=== PATIENT | male | born 1955 | race Caucasian/White ===

== ENCOUNTER 2019-04-21 08:10 | Emergency (ER) | payer MEDICARE, OTHER, SELFPAY ==
--- NOTE | ~2019-04-21 | XR_ITS ---
XR chest 2V 04/21/2019 09:07 Indication: Chest pain. Procedure: 2 view chest Comparison: 07/17/2015 Findings: Heart size normal for technique. There is atherosclerosis. No focal air space disease, pulm onary edema, pleural effusion or suspected pneumothorax. No acute osseous abnormality. Impression: 1: No acute cardiopulmonary disease. Reviewed, dictated and finalized at location A. LE EBS DEVELOPER Impression: 1: No acute cardiopulmonary disease.
--- NOTE | 2019-04-21 08:18 | ECG_ITS ---
Measurements Intervals [place] Rate: 84 P: 54 WI: 165 QRS: -20 QRSD: 105 T: 25 QT: 358 QTc: 424 Interpretive Statements SINUS RHYTHM LOW QRS VOLTAGE IN PRECORDIAL LEADS INCOMPLETE RIGHT BUNDLE BRANCH BLOCK BASELINE ARTIFACT- I, II, III, AVR, AVL, AVF, V1, V3 BORDERLINE ECG Electronically Signed On 04-21-2019 8:45:10 ELECTRICAL EQUIPMENT TECHNICIAN by Nicola Saucedo D.O.
[2019-04-21 08:23] VITALS: BP 140/76; PULSE 84; RESP 16; TEMP 36.4; O2SAT 93
[2019-04-21 08:35] LABS: Basophils Absolute Auto 0.1 K/mm3 (0.0-0.1); Basophils Percent Auto 0.7 % (0.2-1.2); Eosinophils Absolute Auto 0.2 K/mm3 (0-0.3); Eosinophils Percent Auto 1.6 % (0-4.4); Hematocrit 40.1 % (42.0-52.0); Immature Granulocyte Absolute 0.03 K/mm3 (0.00-0.031); Immature Granulocyte Percent A 0.3 % (0-0.5); Lymphocytes Absolute Auto 2.75 K/mm3 (0.9-3.2); Lymphocytes Percent Auto 29.4 % (18.3-44.2); Mean Corpuscular HGB Conc 32.4 g/dl (32-36); Mean Corpuscular Hemoglobin 30.2 pg (26-34); Mean Corpuscular Volume 93.3 fl (80-100); Mean Platelet Volume 10.8 fl (7.4-10.4); Monocytes Absolute Auto 0.6 K/mm3 (0.1-0.6); Monocytes Percent Auto 6.2 % (2.6-8.5); Neutrophils Absolute Auto 5.8 K/mm3 (1.3-6.7); Neutrophils Percent Auto 61.8 % (45.5-73.1); Platelet Count Result 228 k/mm3 (150-375); Red Cell Distribution Width 13.6 % (11.5-14.5); White Blood Count 9.4 K/mm3 (4.5-10.0)
[2019-04-21 08:50] LABS: Blood Urea Nitrogen 21 mg/dL (9-20); Calcium 9.6 mg/dL (8.4-10.2); Carbon Dioxide 31 mmol/L (22-30); Chloride 99 mmol/L (98-107); Estimated CRCL calculation 100 ml/min; Estimated Glomerular Filt Rate > 60; Glucose 190 mg/dL (75-110); Potassium 4.3 mmol/L (3.4-5.0); Prothrombin Time 12.4 Seconds (11.1-14.7); Sodium 135 mmol/L (137-145)
[2019-04-21 08:51] LABS: Partial Thromboplastin Time 26.4 SECONDS (22.3-36.8)
[2019-04-21 09:01] LABS: Troponin I < 0.012 ng/mL (0.000-0.034)
--- NOTE | 2019-04-21 09:07 | ED.CHESTPAIN ---
HPI - Chest Pain General Chief Complaint: Chest Pain Stated Complaint: chest pain Time Seen by Provider: 04/21/19 08:58 Source: patient and RN notes reviewed Mode of arrival: ambulatory Limitations: no limitations History of Present Illness HPI narrative: Pt is a 63 y/o male who presents to the ED with c/o lt upper chest pain starting around 3 AM this morning. He notes that he has a Hx of Parkinson's disease, and states that he has had similar, yet less severe episodes of pain around his lt shoulder previously. Pt notes that his current pain is more intense, and currently rates his pain at 9/10. He describes his pain as throbbing, and notes that his pain intermittently radiates into his lt upper back and down his lt arm. Pt also reports numbness in his lt arm, SOB, and anxiety, but denies any vomiting. He notes that he took Aleve and Baclofen for his pain, but denies having any relief. Pt states that he has a significant FHx of CAD. MD complaint: chest pain Onset (ago): hour(s) (6) Timing of current episode: constant Prior episodes: Yes Onset: during rest Pain location: left chest (lt upper chest) Pain radiation: left arm and back (lt upper back) Pain scale (0-10): 9 Quality: other (throbbing) Relieving factors: nothing Associated symptoms: dyspnea and other (numbness in lt arm; anxiety) Treatment prior to arrival: other (Aleve; Baclofen) Related Data Allergies Allergy/AdvReac Type Severity Reaction Status Date / Time meperidine Allergy Severe Anaphylactic Verified 04/21/19 09:45 Shock Review of Systems Review of Systems: All systems reviewed & are unremarkable except as noted in HPI and below ENT: Denies headache(s) and Denies neck pain Cardiovascular: Cardiovascular: Reports chest pain (lt upper chest pain radiating into lt upper back and down lt arm) Respiratory: Respiratory: Reports dyspnea Gastrointestinal: Gastrointestinal: Denies abdominal pain, Denies diarrhea, Denies nausea and Denies vomiting Neurologic: Reports numbness (lt arm) Psychiatric: Psychiatric: Reports anxiety PMFSH Past Medical History Medical History Diabetes Hernia HTN (hypertension) Parkinsons disease Surgical History Surgical History Hx of cholecystectomy Hx of hernia repair Hx of right knee surgery Social History Social History Smoking status: Never smoker Exam Const: General: no acute distress and well developed Orientation/consciousness: oriented to person, oriented to place, oriented to time and patient oriented x3 HENMT: Head: normocephalic Neck: Neck: normal visual inspection and full ROM Chest: Chest palpation & inspection: normal inspection of the chest and no tenderness Resp: Effort & Inspection: normal respiratory effort Auscultation: clear to auscultation bilaterally Cardio: Rate: regular rate Rhythm: regular rhythm GI: GI Palp: No abdominal tenderness and Yes Soft to palpation Skin: General skin exam: normal color and turgor normal Neuro: General: oriented to person, oriented to place, oriented to time and patient oriented x3 Cognition (Neuro): normal cognition Extrem: General: normal to inspection, full ROM and no pedal edema Psych: Affect: Anxious affect present Course Vital Signs Vital signs: Vital Signs Temperature 36.4 C L 04/21/19 08:23 Pulse Rate 84 04/21/19 08:23 Respiratory Rate 16 04/21/19 08:23 Blood Pressure 140/76 04/21/19 08:23 Pulse Oximetry 93 04/21/19 08:23 Temperature 36.4 C L 04/21/19 08:23 Pulse Rate 73 04/21/19 13:10 Respiratory Rate 16 04/21/19 13:10 Blood Pressure 146/103 H 04/21/19 13:10 Pulse Oximetry 93 04/21/19 08:23 MDM - Chest Pain Lab Data Result diagrams: 04/21/19 08:25 04/21/19 08:25 Labs: Lab Results 04/21/19 04/21/19 04/21/19 Range/Units
[2019-04-21 09:47] LABS: D Dimer 0.46 ug/mL (<0.48)
[2019-04-21] MEDS: KETOROLAC 30 MG/ML VIAL (*BKC) IV PUSH (09:48)
[2019-04-21 11:37] LABS: Troponin I < 0.012 ng/mL (0.000-0.034)
[2019-04-21] MEDS: CYCLOBENZAPRINE HCL 10 MG TABLET PO (12:17)
[2019-04-21] MEDS: LORAZEPAM INJ 2 MG/ML VIAL 1 MG IV PUSH (12:55)
[2019-04-21 13:10] VITALS: BP 146/103; PULSE 73; RESP 16
== END 2019-04-21 13:10 | disposition home or self-care (01) ==
PROVIDERS: Emergency Provider Emergency Medicine
DX: R07.9 Chest pain, unspecified (principal); E11.9 Type 2 diabetes mellitus without complications; I10 Essential (primary) hypertension; G20 Parkinson's disease; I45.10 Unspecified right bundle-branch block
CPT/HCPCS: 36415; 71046; 80048; 84484; 85025; 85380; 85610; 85730; 93005; 96374; 96375; 99284; A9270; J1885; J2060

== ENCOUNTER 2022-08-12 11:02 | Observation (INO) | payer MEDICARE, OTHER, SELFPAY ==
[2022-08-12] VITALS (12 sets, daily range): BP systolic 108–162; BP diastolic 54–135; PULSE 78–90; RESP 16–25; TEMP 36.4–36.5; O2SAT 95–100
--- NOTE | ~2022-08-12 | CT_ITS ---
Noncontrast CT scan of the cervical spine Technique: Multiple contiguous axial [address] images of the cervical spine were obtained and rec onstructed in 2D sagittal and coronal planes on the acquisition scanner. Dose reduction technique was used on this scan by utilizing automated exposure control, adjustment of the mA and/or kV according to patient size. The dose-length product (DLP) was 497.31 mGy-cm. Clinical History: Pain Findings: There is no fracture or subluxation in the cervical spine. Vertebral bodies maintain normal height and alignment. No prevertebral soft tissue swelling. At C2-C3, there is right facet arthropathy. No definite disc bulge or herniation. No spinal canal daxa nosis, cord compression, or definite neural foraminal narrowing. At C3-C4, there is mild degenerative disc narrowing with right facet arthropathy. Bilateral neural fo ramina are preserved. No spinal canal stenosis evident. At C4-C5, there is right facet arthropathy. Probable mild bilateral neural foraminal narrowing, right worse than left. No significant disc bulge or herniation evident. No central canal stenosis or cord compression evident. At C5-C6, there is advanced degenerative disc narrowing, with disc osteophyte complex, especially at the left paracentral to left foraminal region, resulting in mild canal stenosis and probable mild fla ttening of the ventral cord. There is bilateral neural foraminal narrowing. At C6-C7, there is advanced degenerative disc narrowing. There is small disc osteophyte complex with probable minimal central canal stenosis. There is bilateral neural foraminal narrowing, left worse th an right. Impression: No fracture or subluxation of the cervical spine. Moderate degenerative spondylosis at C5-C6 and C6-C7. Mild degenerative changes in the remainder of the cervical spine, as detailed above. Reviewed, dictated and finalized at [facility]. Impression: No fracture or subluxation of the cervical spine. Moderate degenerative spondylosis at C5-C6 and C6-C7. Mild degenerative changes in the remainder of the cervical spine, as detailed josh osorio.
--- NOTE | ~2022-08-12 | NM_ITS ---
EXAMINATION: NM ivon stress w perfusion DATE: 08/13/2022 10:31 INDICATION: Chest pain TECHNIQUE: Rest images were obtained following intravenous administration of 12.8 mCi Tc99m tetrofosm in (Myoview). The patient was infused intravenously with Lexiscan (Regadenoson). Then, 33.3 mCi Tc99m tetrofosmin (Myoview) was administered intravenously, and stress images were obtained in both the celeste pine position and subsequently repeated in prone position. Data was reconstructed into short axis and horizontal and vertical long axis SPECT images. Gated SPECT images were also obtained. COMPARISON: None. FINDINGS: Small fixed perfusion defect at the apical septal segment consistent with infarct. There is additional perfusion defect along the mid inferior wall on the resting and on the delayed post stres s images but which appears within normal limits on the gated post stress imaging which remains equivo ector for additional infarct. No definitive reversible ischemia. There is normal left ventricular ayden missy size, wall motion and ejection fraction. Left ventricular ejection fraction measures 62%. IMPRESSION: 1. Small mild infarct at the apical septal segment and equivocal additional small mild infarct along the mid inferior segment. No reversible ischemia. 2. Left ventricular ejection fraction measuring 62%. Reviewed, dictated and finalized at location A. IMPRESSION: 1. Small mild infarct at the apical septal segment and equivocal additional sma ll mild infarct along the mid inferior segment. No reversible ischemia. 2. Left ventricular ejection fraction measuring 62%.
--- NOTE | ~2022-08-12 | CT_ITS ---
Noncontrast CT scan of the thoracic spine CLINICAL HISTORY: Back pain TECHNIQUE: Axial noncontrast imaging of the thoracic spine was performed. Sagittal and coronal reform atted images were constructed. Dose reduction technique was used on this scan by utilizing automated exposure control and iterative reconstruction technique. The dose-length product (DLP) was 1247.55 mG y-cm. FINDINGS: There is no fracture or subluxation of the thoracic spine. Vertebral bodies maintain normal height and alignment. There is severe degenerative disc narrowing at T1-T2 and at T5-T6. There is also advanced degenerativ e disc narrowing at T7-T8, T10-T11, and T11-T12. There is associated facet arthropathy at T10-T11 res ulting in probable mild central canal stenosis. There is additional mild facet arthropathy at T9-T10, probable mild central canal stenosis. No other definite areas of canal stenosis identified. Paravertebral soft tissues are unremarkable. Impression: No fracture or sublocation. Degenerative changes, as detailed above, probable mild central canal stenosis at T9-T10 and T10-11. A dditional areas of degenerative disc narrowing throughout the thoracic spine, as detailed above. Reviewed, dictated and finalized at location M. Impression: No fracture or sublocation. Degenerative changes, as detailed above, probable mild central canal stenosis a t T9-T10 and T10-11. Additional areas of degenerative disc narrowing throughout the thoracic spine, as detailed above.
--- NOTE | ~2022-08-12 | XR_ITS ---
Clinical Indication: Chest pain PA and lateral views of the chest: Comparison: 04/21/2019 Findings: The lungs are clear, without evidence of focal consolidation or pleural effusion. Cardiome diastinal silhouette is within normal limits. Bones and soft tissues are unremarkable. Impression: Normal chest. Reviewed, dictated and finalized at location . Impression: Normal chest.
--- NOTE | ~2022-08-12 | XR_ITS ---
EXAMINATION: [id number] DATE: 08/13/2022 15:20 INDICATION: Left knee swelling TECHNIQUE: Two views of the left knee were obtained. COMPARISON: None. FINDINGS: Alignment is normal. No fracture or osteochondral lesion. There is mild tricompartmental os teoarthritis characterized by tiny marginal osteophytes. There is a small knee joint effusion. There is prepatellar soft tissue swelling of the knee. IMPRESSION: 1. Small knee joint effusion and prepatellar soft tissue swelling of the knee without acute osseous a bnormality. Reviewed, dictated and finalized at location B. IMPRESSION: 1. Small knee joint effusion and prepatellar soft tissue swelling of the knee w ithout acute osseous abnormality.
--- NOTE | 2022-08-12 11:03 | ECG_ITS ---
Measurements Intervals [place] Rate: 92 P: 43 TX: 158 QRS: -23 QRSD: 98 T: 9 QT: 323 QTc: 401 Interpretive Statements SINUS RHYTHM BORDERLINE LEFT AXIS DEVIATION [QRS AXIS < -20] INCOMPLETE RIGHT BUNDLE BRANCH BLOCK [90+ ms QRS DURATION, TERMINAL R IN V1/V2, 40+ ms S IN I/aVL/V4/V5/V6] COMPARED TO ECG 04/21/2019 08:16:31 NO SIGNIFICANT CHANGES Electronically Signed On 08-12-2022 11:52:53 CDT by Sheila Austin M.D.
[2022-08-12 11:35] LABS: Basophils Absolute Auto 0.1 K/mm3 (0.0-0.1); Basophils Percent Auto 0.9 % (0.2-1.2); Eosinophils Absolute Auto 0.1 K/mm3 (0-0.3); Eosinophils Percent Auto 0.8 % (0-4.4); Hematocrit 36.2 % (42.0-52.0); Hemoglobin 11.7 g/dL (14.0-18.0); Immature Granulocyte Absolute 0.04 K/mm3 (0.00-0.031); Immature Granulocyte Percent A 0.4 % (0-0.5); Lymphocytes Absolute Auto 1.42 K/mm3 (0.9-3.2); Lymphocytes Percent Auto 15.4 % (18.3-44.2); Mean Corpuscular HGB Conc 32.3 g/dl (32-36); Mean Corpuscular Hemoglobin 30.2 pg (26-34); Mean Corpuscular Volume 93.5 fl (80-100); Mean Platelet Volume 10.8 fl (7.4-10.4); Monocytes Absolute Auto 0.6 K/mm3 (0.1-0.6); Monocytes Percent Auto 6.4 % (2.6-8.5); Neutrophils Percent Auto 76.1 % (45.5-73.1); Platelet Count Result 218 k/mm3 (150-375); Red Blood Count 3.87 M/mm3 (4.6-6.20); Red Cell Distribution Width 14.8 % (11.5-14.5); White Blood Count 9.2 K/mm3 (4.5-10.0)
[2022-08-12 11:45] LABS: INR 0.9
[2022-08-12 11:46] LABS: Partial Thromboplastin Time 26.5 SECONDS (22.3-36.8)
[2022-08-12] MEDS: ASPIRIN 81 MG CHEWABLE TABLET 324 MG PO (11:46)
[2022-08-12 11:47] LABS: Alanine Aminotransferase 11 U/L (6-50); Albumin Level 4.3 g/dL (3.5-5.1); Alkaline Phosphatase 86 U/L (38-126); Anion Gap 2 mmol/L (8-16); Aspartate Amino Transferase 32 U/L (17-59); Bilirubin,Total 0.7 mg/dL (0.2-1.3); Blood Urea Nitrogen 28 mg/dL (9-20); Calcium 9.5 mg/dL (8.4-10.2); Carbon Dioxide 32 mmol/L (22-30); Chloride 103 mmol/L (98-107); Estimated CRCL calculation 85 ml/min; Estimated Glomerular Filt Rate > 60; Glucose 135 mg/dL (65-110); Lipase 183 U/L (23-300); Potassium 4.7 mmol/L (3.4-5.0); Sodium 137 mmol/L (137-145)
--- NOTE | 2022-08-12 12:38 | ED.CHESTPAIN ---
HPI - Chest Pain General Chief Complaint: Chest Pain Stated Complaint: chest pain Time Seen by Provider: 08/12/22 12:01 History of Present Illness HPI narrative: Patient is a 66-year-old male with a history of Parkinson's, diabetes, hypertension presenting with chest pain. Patient states that he is very active and he is currently renovating 2 houses. States that over the last 6 months he has experienced worsening exertional chest pain. States that he feels fine until he gets up and does physical activity. States that he developed severe chest pressure that radiates into his left arm and neck. States that he often feels short of breath with these episodes. States that if he sits down and rests the pain goes away. States these episodes have been increasingly frequent which is what brought him in today. Currently, he denies any complaints. States his last stress test was probably more than 20 years ago. Denies fevers, cough, headache, numbness or weakness, abdominal pain, vomiting, diarrhea, leg swelling. Related Data Home Medications Medication Instructions Recorded Confirmed carbidopa 25 mg-levodopa 100 mg 4 tablet PO Q3H 08/12/22 08/12/22 tablet carbidopa ER 50 mg-levodopa 200 mg 2 tablet PO HS 08/12/22 08/12/22 tablet,extended release duloxetine 60 mg capsule,delayed 60 mg PO Q12H 08/12/22 08/12/22 release melatonin 10 mg tablet 10 mg PO HS 08/12/22 08/12/22 metformin 500 mg tablet,extended 1,000 mg PO Q12H 08/12/22 08/12/22 release 24 hr mirtazapine 30 mg tablet 30 mg PO HS 08/12/22 08/12/22 naproxen sodium 220 mg capsule 220 mg PO Q12H PRN Pain 08/12/22 08/12/22 (Aleve) polyethylene glycol 3350 17 17 g PO DAILY 08/12/22 08/12/22 gram/dose oral powder (Miralax) pregabalin 300 mg capsule 300 mg PO Q12H 08/12/22 08/12/22 sitagliptin phosphate 100 mg 100 mg PO DAILY 08/12/22 08/12/22 tablet (Januvia) trazodone 100 mg tablet 100 mg PO HS 08/12/22 08/12/22 Allergies Allergy/AdvReac Type Severity Reaction Status Date / Time meperidine Allergy Severe Anaphylactic Verified 04/21/19 09:45 Shock Review of Systems Review of Systems: All systems reviewed & are unremarkable except as noted in HPI and below PMFSH Past Medical History Medical History (Updated 08/12/22 @ 20:55 by Lisa Casas MD) Diabetes Hernia HTN (hypertension) Parkinsons disease Surgical History Surgical History (Updated 08/12/22 @ 20:18 by Tonia Trent NP) History of carpal tunnel release Hx of cholecystectomy Hx of hernia repair Hx of right knee surgery Family History Family History (Updated 08/12/22 @ 20:22 by Tonia Trent NP) Other Hypertension Social History Social History (Updated 08/12/22 @ 20:22 by Tonia Trent NP) Social History: The patient lives with his who is a nurse at [employer]. 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 He has 2 children and has never smoked cigarettes. The patient is currently disabled due to his Parkinson's. Code status full code Smoking status: Never smoker Lack of Transportation: No Lack of Food: Never True Current Housing: I Have Housing Concerned About Future Housing: No Difficulty Paying Gas/Electric Bills: No Difficulty Paying for Meds: No Currently Unemployed: No Education: Decline to Answer Difficulty w/ Childcare or Family Care: No Spiritual care concerns: No Exam Narrative: GENERAL: Well-appearing, well-nourished, and in no acute distress. Pleasant and cooperative HEAD: Normocephalic, atraumatic. EYES: PERRLA and EOMI. ENT: Nares clear, no rhinorrhea or epistaxis. Mucous membranes moist. NECK: Supple. CHEST: Clear to auscultation. No respiratory distress. HEART: Regular rate and rhythm. No murmur heard. Normal peripheral pulses. ABDOMEN: Soft, nontender, nondistended EXTREMITIES: Normal range of motion. No edema. SKIN: Warm, dry, no rash. NEURO: No focal deficits. Alert and oriented x3. + Parkinso
[2022-08-12 13:19] LABS: Troponin I < 0.012 ng/mL (0.000-0.034)
[2022-08-12 14:22] LABS: Troponin I < 0.012 ng/mL (0.000-0.034)
--- NOTE | 2022-08-12 15:03 | PM.IMHP ---
H&P: HPI History of Present Illness Date/Time: 08/12/22 15:03 Chief Complaint: Chest pain Narrative: This is a 66-year-old male patient has a history of Parkinson's, hypertension, and diabetes. The patient is typically very active and has been renovating 2 houses. Over the last 6 months he has had worsening exertional chest pain. The patient stated that he has mid sternal chest pain that radiates to his left neck and down his left arm. He endorses shortness of breath but the patient stated that it is sharp and when he rests the pain goes away. He stated the last time he had a cardiac workup was in 2019. He stated that was normal. When the patient was here in 2019 he was just in the emergency room and had similar symptoms. His troponins were negative at that time and they are also negative today. H&H 11.7 and 36.2. As previously mentioned his cardiac enzymes are negative.Chest x ray was read as normal chest . EKG was read as sinus rhythm borderline left axis deviation. The patient was given an aspirin. The patient is being admitted to observation status on the date of service of 08/12/2021 Review of Systems Review of Systems: All systems reviewed & are unremarkable except as noted in HPI and below Constitutional: Constitutional: Reports as per HPI and Reports no additional constitutional complaints Eyes: Eyes: Reports as per HPI and Reports no additional eye complaints ENT: Reports system reviewed and no additional complaints, except as documented and Reports Normal hearing present Cardiovascular: Cardiovascular: Reports no additional cardiovascular complaints Respiratory: Respiratory: Reports no additional respiratory complaints and Reports no additional respiratory complaints Gastrointestinal: Gastrointestinal: Reports as per HPI and Reports no additional gastrointestinal complaints Musculoskeletal: Musculoskeletal: Reports no additional musculoskeletal complaints Integumentary/Breasts: Skin/Breast: Reports system reviewed and no additional complaints, except as docu and Reports as per HPI Neurologic: Reports system reviewed and no additional complaints, except as documented, Reports as per HPI and Reports Normal hearing present Psychiatric: Psychiatric: Reports no additional psychiatric complaints and Reports as per HPI Endocrine: Endocrine: Reports no additional endocrine complaints Hematologic/Lymphatic: Hematologic/Lymphatic: Reports no additional hematologic/lymphatic complaints Allergic/Immunologic: Allergic/Immunologic: Reports no additional allergic/immunologic complaints [facility] Past Medical History Medical History (Updated 08/12/22 @ 20:18 by Tonia Trent NP) Diabetes Hernia HTN (hypertension) Parkinsons disease Surgical History Surgical History (Updated 08/12/22 @ 20:18 by Tonia Trent NP) History of carpal tunnel release Hx of cholecystectomy Hx of hernia repair Hx of right knee surgery Family History Family History (Updated 08/12/22 @ 20:22 by Tonia Trent NP) Other Hypertension Social History Social History (Updated 08/12/22 @ 20:22 by Tonia Trent NP) Social History: The patient lives with his who is a nurse at [employer] [employer]. 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 He has 2 children and has never smoked cigarettes. The patient is currently disabled due to his Parkinson's. Code status full code Smoking status: Never smoker Lack of Transportation: No Lack of Food: Never True Current Housing: I Have Housing Concerned About Future Housing: No Difficulty Paying Gas/Electric Bills: No Difficulty Paying for Meds: No Currently Unemployed: No Education: Decline to Answer Difficulty w/ Childcare or Family Care: No Spiritual care concerns: No Meds Home Medications and Allergies Home Medications Medication Instructions Recorded Confirmed Type carbidopa 25 mg-levodopa 100 mg 4 tablet PO Q3H 08/12/22 08/12/22 History tablet
[2022-08-12] MEDS: CARBIDOPA/LEVODOPA 25/100 MG TABLET 4 TABLET PO ×3 (16:02→23:58)
[2022-08-12 17:34] LABS: Troponin I 0.015 ng/mL (0.000-0.034)
[2022-08-12] MEDS: CARBIDOPA/LEVODOPA 25/100 MG CR TABLET 4 TABLET PO (21:47)
[2022-08-12] MEDS: MELATONIN 5 MG TABLET 10 MG PO (21:48)
[2022-08-12] MEDS: MIRTAZAPINE 30 MG TABLET PO (21:49)
[2022-08-12] MEDS: PREGABALIN (*CRX) 75 MG CAPSULE 300 MG PO (21:50)
[2022-08-12] MEDS: traZODone HCL 50 MG TABLET 100 MG PO (21:52)
[2022-08-12] MEDS: DULoxetine HCL 60 MG CAPSULE.DR PO (21:52)
[2022-08-13] VITALS (11 sets, daily range): BP systolic 95–149; BP diastolic 58–82; PULSE 67–94; RESP 18–24; TEMP 36.1–36.6; O2SAT 97–100
--- NOTE | 2022-08-13 | ECHO_ITS ---
Patient Info Name: Barrington Hdze Age: 66 years : 1955 Gender: Male Ht: 71 in Wt: 180 lbs BSA: 2.03 m2 HR: 69 bpm BP: 102 / 58 mmHg Technical Quality: Fair Exam Date: 08/13/2022 2:05 PM Exam Location: [facility] Pulmonary Exam Room: [facility] Patient Status: Outpatient Admit Date: 08/12/2022 Staff Ordering Physician: Tonia Trent NP Concrete Saw Operator: Katheryn Jane RDCS Attending Provider: Damian Treadwell MD Referring Physician: Twan CALLAWAY; Exam Type: CA echo doppler color flow Study Info Indications - chest pain Complete two-dimensional, color flow and Doppler transthoracic echocardiogram is performed. Summary 1. Complete two-dimensional, color flow and Doppler transthoracic echocardiogram is performed. 2. Left ventricular chamber dimension is normal. 3. Left ventricular systolic function is normal, estimated at 60-65%. 4. The left ventricular diastolic function is grade I diastolic dysfunction. 5. E/e' 10 is mildly elevated. 6. Global longitudinal strain is normal at -18.0%. 7. Left atrial chamber dimension is mildly enlarged. 8. There is mild aortic valve sclerosis. 9. There is trace tricuspid valve regurgitation. 10. No pulmonary hypertension, estimated pulmonary arterial systolic pressure is 26 mmHg. 11. There is trace pulmonic regurgitation. Left Ventricle E/e' 10 is mildly elevated. Global longitudinal strain is normal at -18.0%. Left ventricular chamber dimension is normal. Left ventricular systolic function is normal, estimated at 60-65%. The left ventricular diastolic function is grade I diastolic dysfunction. Right Ventricle Right ventricular chamber dimension is normal. Right ventricular systolic function is normal. Left Atria Left atrial chamber dimension is mildly enlarged. Right Atria Right atrial chamber dimension is normal. Aortic Valve The aortic valve is trileaflet. There is mild aortic valve sclerosis. There is no aortic valve stenosis. There is no aortic valve regurgitation. Pulmonic Valve There is trace pulmonic regurgitation. Mitral Valve There is no mitral valve stenosis. There is no mitral valve regurgitation. Tricuspid Valve There is trace tricuspid valve regurgitation. No pulmonary hypertension, estimated pulmonary arterial systolic pressure is 26 mmHg. Pericardium/Pleural There is no pericardial effusion. Inferior Vena Cava Normal inferior vena cava with >50% collapse upon inspiration consistent with normal right atrial pressure, 5 mmHg. Aorta The aortic root size at the sinus of Valsalva is normal. Left Ventricular Outflow Tract Name Value Normal LVOT 2D LVOT Diameter 2.1 cm LVOT Doppler LVOT Peak Gradient 5 mmHg LVOT Mean Gradient 3 mmHg LVOT VTI 20 cm LVOT VTI/AV VTI Ratio 0.8 LVOT Stroke Volume 70 ml LVOT CO 18.3 l/min LVOT CI 9.0 l/min/m2 Pulmonic Valve Name Value Normal
[2022-08-13] MEDS: CARBIDOPA/LEVODOPA 25/100 MG TABLET 4 TABLET PO ×7 (02:30→19:43)
[2022-08-13 05:00] LABS: Basophils Absolute Auto 0.1 K/mm3 (0.0-0.1); Basophils Percent Auto 0.8 % (0.2-1.2); Eosinophils Absolute Auto 0.2 K/mm3 (0-0.3); Eosinophils Percent Auto 2.8 % (0-4.4); Hematocrit 35.1 % (42.0-52.0); Hemoglobin 11.3 g/dL (14.0-18.0); Immature Granulocyte Absolute 0.02 K/mm3 (0.00-0.031); Immature Granulocyte Percent A 0.3 % (0-0.5); Lymphocytes Absolute Auto 2.58 K/mm3 (0.9-3.2); Lymphocytes Percent Auto 32.5 % (18.3-44.2); Mean Corpuscular HGB Conc 32.2 g/dl (32-36); Mean Corpuscular Hemoglobin 30.5 pg (26-34); Mean Corpuscular Volume 94.6 fl (80-100); Mean Platelet Volume 10.7 fl (7.4-10.4); Monocytes Absolute Auto 0.6 K/mm3 (0.1-0.6); Monocytes Percent Auto 7.9 % (2.6-8.5); Neutrophils Absolute Auto 4.4 K/mm3 (1.3-6.7); Neutrophils Percent Auto 55.7 % (45.5-73.1); Platelet Count Result 213 k/mm3 (150-375); Red Blood Count 3.71 M/mm3 (4.6-6.20); Red Cell Distribution Width 15.1 % (11.5-14.5); White Blood Count 7.9 K/mm3 (4.5-10.0)
[2022-08-13 05:08] LABS: Alanine Aminotransferase 8 U/L (6-50); Albumin Level 3.5 g/dL (3.5-5.1); Alkaline Phosphatase 80 U/L (38-126); Anion Gap 1 mmol/L (8-16); Aspartate Amino Transferase 24 U/L (17-59); Bilirubin,Total 0.7 mg/dL (0.2-1.3); Blood Urea Nitrogen 23 mg/dL (9-20); Calcium 8.7 mg/dL (8.4-10.2); Carbon Dioxide 34 mmol/L (22-30); Chloride 103 mmol/L (98-107); Estimated CRCL calculation 85 ml/min; Estimated Glomerular Filt Rate > 60; Glucose 126 mg/dL (65-110); Magnesium 2.1 mg/dL (1.6-2.3); Sodium 138 mmol/L (137-145)
[2022-08-13 05:09] LABS: Lactic Acid Reflex 1.2 mmol/L (0.7-2.0)
[2022-08-13 05:31] LABS: Hemoglobin A1C 6.7 % (<5.7)
[2022-08-13 05:38] LABS: Thyroid Stimulating Hormone Reflex 0.468 uIU/mL (0.465-4.68)
[2022-08-13 09:16] LABS: Troponin I 0.015 ng/mL (0.000-0.034)
[2022-08-13 10:09] LABS: Glucose Point of Care 237 mg/dl (65-105)
[2022-08-13] MEDS: PREGABALIN (*CRX) 75 MG CAPSULE 300 MG PO (10:18)
[2022-08-13] MEDS: ASPIRIN 325 MG ENTERIC TABLET PO (10:18)
[2022-08-13] MEDS: INSULIN ASPART (*BKC) 100 UNITS/ML SUB-Q (10:19)
[2022-08-13] MEDS: DULoxetine HCL 60 MG CAPSULE.DR PO (10:19)
[2022-08-13] MEDS: polyethylene glycoL 3350 17 GM POWD.PACK PO (10:19)
[2022-08-13 11:32] LABS: Glucose Point of Care 149 mg/dl (65-105)
--- NOTE | 2022-08-13 15:07 | PM.CNOR ---
Assessment and Plan Assessment and plan (1) Right shoulder pain: Qualifiers: Chronicity: acute Qualified Code(s): M25.511 - Pain in right shoulder Code(s): M25.511 - Pain in right shoulder Status: Acute Assessment and Plan: Right shoulder pain and weakness. Painful arc of motion suggest rotator cuff pathology. Differential includes rotator cuff tendinitis or tear. No signs of acute infection or dislocation. Depending on the results of the MRI he could start physical therapy as an outpatient. He may follow-up with me as an outpatient. (2) Prepatellar bursitis, left knee: Code(s): M70.42 - Prepatellar bursitis, left knee Status: Acute Assessment and Plan: No signs of infection. Likely related to several falls. Scarring and fluid in the bursa should resolve over time. If symptoms persist, surgical excision could be considered. Aspiration runs a significant risk of causing an infection. Symptoms and signs of infection reviewed with the patient. Okay to discharge patient when ready. Follow-up as needed. History of Present Illness HPI Consult date: 08/13/22 Chief complaint: chest pain Narrative: 66-year-old male admitted with chest pain. Workup thus far negative. Complains of swelling in the left knee anteriorly. States that he has fallen on this knee several times. He does have a history of Parkinson's disease. His contralateral knee causes him more regular pain. No fevers chills or sweats. Also complains of right shoulder pain in the top posterior aspect of the shoulder. Worse with reaching and overhead activities. Review of Systems Constitutional: Constitutional: Reports as per [facility] Past Medical History Medical History Diabetes Hernia HTN (hypertension) Parkinsons disease Surgical History Surgical History History of carpal tunnel release Hx of cholecystectomy Hx of hernia repair Hx of right knee surgery Family History Family History Other Hypertension Social History Social History Social History: The patient lives with his who is a nurse at [employer]. 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 He has 2 children and has never smoked cigarettes. The patient is currently disabled due to his Parkinson's. Code status full code Smoking status: Never smoker Lack of Transportation: No Lack of Food: Never True Current Housing: I Have Housing Concerned About Future Housing: No Difficulty Paying Gas/Electric Bills: No Difficulty Paying for Meds: No Currently Unemployed: No Education: Decline to Answer Difficulty w/ Childcare or Family Care: No Spiritual care concerns: No Meds Home Medications and Allergies Home Medications Medication Instructions Recorded Confirmed Type carbidopa 25 mg-levodopa 100 mg 4 tablet PO Q3H 08/12/22 08/12/22 History tablet carbidopa ER 50 mg-levodopa 200 mg 2 tablet PO HS 08/12/22 08/12/22 History tablet,extended release duloxetine 60 mg capsule,delayed 60 mg PO Q12H 08/12/22 08/12/22 History release melatonin 10 mg tablet 10 mg PO HS 08/12/22 08/12/22 History metformin 500 mg tablet,extended 1,000 mg PO Q12H 08/12/22 08/12/22 History release 24 hr mirtazapine 30 mg tablet 30 mg PO HS 08/12/22 08/12/22 History naproxen sodium 220 mg capsule 220 mg PO Q12H PRN Pain 08/12/22 08/12/22 History (Aleve) polyethylene glycol 3350 17 17 g PO DAILY 08/12/22 08/12/22 History gram/dose oral powder (Miralax) pregabalin 300 mg capsule 300 mg PO Q12H 08/12/22 08/12/22 History sitagliptin phosphate 100 mg 100 mg PO DAILY 08/12/22 08/12/22 History tablet (Januvia) trazodone 100 mg tablet 100 mg PO HS 08/12/22 08/12/22 History Allergies Allergy/AdvRea
[2022-08-13] MEDS: TETANUS/DIPHTHERIA TOXOIDS ADSORB 0.5 ML VIAL (*BKC) IM (15:30)
[2022-08-13 16:14] LABS: Glucose Point of Care 132 mg/dl (65-105)
[2022-08-13 16:18] LABS: Troponin I < 0.012 ng/mL (0.000-0.034)
--- NOTE | 2022-08-13 16:56 | PM.DS ---
DS: Admitting Diagnosis Discharge Date August 13 Admitting Diagnosis Chest pain DS: Discharge Diagnosis Discharge Diagnosis (1) Chest pain: Qualifiers: Chest pain type: unspecified Qualified Code(s): R07.9 - Chest pain, unspecified Code(s): R07.9 - Chest pain, unspecified Status: Inactive Assessment and Plan: Cardiac enzymes are negative x3. The patient had a similar episode in 2019. The patient also has some tenderness to his cervical spine as well as thoracic spine. The patient states he has a history of scoliosis although it is not that severe. CT of the cervical and thoracic spine have also been ordered. Echo has been ordered. Nuclear med stress test have been ordered as well. Check lipid panel continue with daily aspirin. -lexiscan negative for ischemic ST changes small mild infarct at the apical septal segment and equivocal additional small mild infarct along the mid inferior segment. No reversible ischemia noted. LV is estimated at 62%. I spoke with cardiology and there is nothing they need to intervene on. Patient will be discharged home with ASA and a statin. Recommend PCP follow up and may benefit from repeat stress test in 6 months to a year. -Troponin negative (2) Anxiety: Code(s): F41.9 - Anxiety disorder, unspecified Status: Inactive Assessment and Plan: Continue with trazodone, mirtazapine, and duloxetine. (3) Diabetes: Qualifiers: Diabetes mellitus type: type 2 Diabetes mellitus [employer] insulin use: without [facility] use Diabetes mellitus complication status: without complication Qualified Code(s): E11.9 - Type 2 diabetes mellitus without complications Code(s): E11.9 - Type 2 diabetes mellitus without complications Status: Acute Assessment and Plan: Holding metformin in the event that the patient may need a cardiac catheterization. I explained this to the patient he understands. Continue Januvia. Accu-Cheks AC and HS with sliding scale insulin. Check A1c P -HgbA1c 6.7. Restarting home mediations at discharge. (4) Parkinsons disease: Code(s): G20 - Parkinson's disease Status: Acute Assessment and Plan: Continue with patient's carbidopa levodopa (5) HTN (hypertension): Qualifiers: Hypertension type: primary hypertension Qualified Code(s): I10 - Essential (primary) hypertension Code(s): I10 - Essential (primary) hypertension Status: Acute Assessment and Plan: The patient stated that he used to have high blood pressure but his Parkinson's medication made his blood pressure dropped so he is no longer unable blood pressure medications. DS: Summary Hospital Course Reason for hospitalization: chest pain Hospital Course: This is a 66-year-old male patient has a history of Parkinson's, hypertension, and diabetes.? The patient is typically very active and has been renovating 2 houses.? Over the last 6 months he has had worsening exertional chest pain.? The patient stated that he has mid sternal chest pain that radiates to his left neck and down his left arm.? He endorses shortness of breath but the patient stated that it is sharp and when he rests the pain goes away.? He stated the last time he had a cardiac workup was in 2019.? He stated that was normal.? When the patient was here in 2019 he was just in the emergency room and had similar symptoms.? His troponins were negative at that time and they are also negative today.? H&H 11.7 and 36.2.? As previously mentioned his cardiac enzymes are negative.Chest x ray was read as normal chest .? EKG was read as sinus rhythm borderline left axis deviation.? The patient was given an aspirin.? The patient is being admitted to observation status on the date of service of 08/12/202108/13: Chest pain is mostly resolved. Less likely cardiac and more likely contributed to anxiety and musculoskeletal pain from frequent falls. Stress test was n
--- NOTE | 2022-08-13 20:24 | EST_ITS ---
Patient Info Name: Barrington Hdez Age: 66 years : 1955 Gender: Male Ht: 71 in Wt: 180 lbs BSA: 2.03 m2 HR: 78 bpm BP: 133 / 65 mmHg Heart Rhythm: Sinus Rhythm Exam Date: 08/13/2022 8:46 AM Exam Location: [facility] Stress Patient Status: Inpatient Admit Date: 08/12/2022 Staff Ordering Physician: Tonia Trent NP Attending Provider: Damian Treadwell MD Exercise Technologist: Maria Isabel Portillo CT Exercise Physician: Nicola Saucedo DO Exam Type: CA stress ivon w NM Study Info Indications R06.09 - Other forms of dyspnea A regadenoson stress test was performed. Summary 1. 1. Negative lexiscan stress test for ischemic ST changes by ECG criteria. 2. 2. Stable hemodynamics throughout the test. 3. 3. Nuclear scan to follow and will be reported separately. Please correlate with it. 4. 4. Patient informed of the above results. Protocol: Lexiscan Stress ECG Details Stage: REST Duration (min): 1 min : 32 sec HR (bpm): 78 SBP (mmHg): 133 DBP (mmHg): 65 Stage: REST Duration (min): 10 min : 31 sec HR (bpm): 78 SBP (mmHg): 133 DBP (mmHg): 65 Stage: STAGE 1 Duration (min): 0 min : 59 sec HR (bpm): 87 SBP (mmHg): 149 DBP (mmHg): 81 Stage: RECOVERY Duration (min): 1 min : 0 sec HR (bpm): 90 SBP (mmHg): 149 DBP (mmHg): 81 Stage: RECOVERY Duration (min): 2 min : 0 sec HR (bpm): 97 SBP (mmHg): 149 DBP (mmHg): 81 Stage: RECOVERY Duration (min): 3 min : 0 sec HR (bpm): 89 SBP (mmHg): 118 DBP (mmHg): 74 Stage: RECOVERY Duration (min): 3 min : 5 sec HR (bpm): 88 SBP (mmHg): 118 DBP (mmHg): 74 Rest HR: 78 bpm Peak HR: 97 bpm Rest Sys BP: 133 mmHg Peak Sys BP: 149 mmHg Max Pred HR: 155 bpm % Max Pred HR: 63 % Target HR: 132 bpm Max RPP: 14,453 bpm*mmHg Termination Reason: Completed protocol Cardiac Symptoms: None Total Time: 1 min : 0 sec Rest Salguero BP: 65 mmHg Peak Salguero BP: 81 mmHg Total Dose: 0.4 mg Resting ECG Sinus rhythm. Stress ECG No ST changes. Arrhythmias None. Report Signatures
[2022-08-13 20:52] LABS: Glucose Point of Care 126 mg/dl (65-105)
== END 2022-08-13 19:57 | disposition home or self-care (01) ==
LOC: ANHED 12:17 → ANHIMU 14:26
PROVIDERS: Emergency Medicine; Nurse Practitioner; Nurse Practitioner Acute Care; Admitting Provider Internal Medicine; Emergency Provider Emergency Medicine; PCP Internal Medicine Endocrinology, Diabetes & Metabolism; Visit Provider Student in an Organized Health Care Education/Training Program
DX: R07.9 Chest pain, unspecified (principal); F41.9 Anxiety disorder, unspecified; E11.9 Type 2 diabetes mellitus without complications; G20 Parkinson's disease; I11.9 Hypertensive heart disease without heart failure; Z23 Encounter for immunization; M25.511 Pain in right shoulder; M70.42 Prepatellar bursitis, left knee; M47.812 Spondylosis without myelopathy or radiculopathy, cervical region; M25.462 Effusion, left knee; M51.34 Other intervertebral disc degeneration, thoracic region; R06.09 Other forms of dyspnea; I45.10 Unspecified right bundle-branch block; I35.8 Other nonrheumatic aortic valve disorders; Z79.84 Long term (current) use of oral hypoglycemic drugs; Z79.1 Long term (current) use of non-steroidal anti-inflammatories (NSAID); Z79.899 Other long term (current) drug therapy; Z82.49 Family history of ischemic heart disease and other diseases of the circulatory system
CPT/HCPCS: 36415; 71046; 72125; 72128; 73560; 78452; 80053; 82948; 83036; 83605; 83690; 83735; 84443; 84484; 85025; 85610; 85730; 90471; 90714; 93005; 93017; 93306; 99285; A9270; A9502; G0378; J1815; J2785

== ENCOUNTER 2022-11-04 13:39 | Inpatient (IN) | payer MEDICARE, OTHER, SELFPAY ==
--- NOTE | ~2022-11-04 | XR_ITS ---
XR chest 1V portable 11/07/2022 06:40 Indication: Shortness of breath Procedure: AP portable chest Comparison: Comparison to multiple prior studies sequentially, with oldest reviewed study dated 08/2019. Findings: Cardiomegaly. Persistent diffuse bilateral airspace disease unchanged from 11/06/2022. No si gnificant effusion or pneumothorax. No acute osseous abnormality. Impression: 1: Stable diffuse bilateral airspace disease, most likely edema. Pneumonia less favored. Reviewed, dictated and finalized at location A. Impression: 1: Stable diffuse bilateral airspace disease, most likely edema. Pneumonia less favored.
--- NOTE | ~2022-11-04 | XR_ITS ---
XR chest 1V portable 11/05/2022 08:42 Indication: Chest pain Procedure: AP portable chest Comparison: Comparison to multiple prior studies sequentially, with oldest reviewed study dated 03/2015. Findings: Borderline heart size. Mild interstitial edema. No pleural effusion or pneumothorax. No acu te osseous abnormality. Impression: 1: Borderline heart size with mild interstitial edema. Reviewed, dictated and finalized at location A. Impression: 1: Borderline heart size with mild interstitial edema.
--- NOTE | ~2022-11-04 | XR_ITS ---
EXAMINATION: XR knee LT min 4V DATE: 11/04/2022 16:35 INDICATION: Knee pain TECHNIQUE: Four views of the left knee were obtained. COMPARISON: None. FINDINGS: Alignment is normal. No fracture or osteochondral lesion. There is mild tricompartmental os teoarthritis characterized by tiny marginal osteophytes. No joint effusion/synovitis. There is marke d prepatellar soft tissue swelling. Calcified atherosclerosis is noted. IMPRESSION: 1. Marked prepatellar soft tissue swelling. Reviewed, dictated and finalized at location L.
--- NOTE | ~2022-11-04 | XR_ITS ---
EXAMINATION: XR chest 1V portable Exam Date/Time: 11/06/2022 14:20 CDT HISTORY: SOB DYSPNEA Comparison: 11/05/2022. RESULT: Lines, tubes, and devices: None. Lungs and pleura: Patchy, bilateral, somewhat centralized airspace disease, overlying diffuse reticu lar opacities. Bibasilar scar/atelectasis. Cardiomediastinal silhouette: Stable. Other: No acute osseous or upper abdominal finding. IMPRESSION: Pulmonary opacities presumably related to moderate pulmonary edema given the rapidity of onset. Pneum onia should remain in the differential. Reviewed, dictated and finalized at location K. IMPRESSION: Pulmonary opacities presumably related to moderate pulmonary edema given the ra pidity of onset. Pneumonia should remain in the differential.
--- NOTE | ~2022-11-04 | CT_ITS ---
EXAMINATION: CTA chest PE protocol DATE: 11/06/2022 14:53 INDICATION: SOB TECHNIQUE: Computed tomography angiography (CTA) of the chest was performed with 100 mL Omnipaque-350 intravenous contrast timed to evaluate the pulmonary arteries. Coronal maximum intensity projection 3D-reconstructions were created by the technologist. The dose-length product (DLP) was 531.68 mGy-cm. Automated exposure control and iterative reconstruction technique were employed. COMPARISON: X-ray chest, same date. FINDINGS: Lung parenchyma and airways: Patchy, diffuse bilateral consolidative and groundglass opacities with i nterlobular septal thickening. Pleura: Small bilateral pleural fluid collections. Thoracic inlet, axillae and chest wall: Unremarkable. Thoracic aorta: Mild arch calcification. Mediastinum: Normal. Heart and pericardium: Normal. Coronary artery calcifications: Moderate. Upper abdomen: No significant finding. Bones: No acute osseous finding. Pulmonary arteries: Study quality: Adequate. No pulmonary emboli detected. IMPRESSION: No CT evidence of acute pulmonary embolus. Pulmonary opacities most consistent with moderate pulmonary edema. Small bilateral pleural effusions. Infection is not excluded. Reviewed, dictated and finalized at location K. IMPRESSION: No CT evidence of acute pulmonary embolus. Pulmonary opacities most consistent with moderate pulmonary edema. Small bilate ral pleural effusions. Infection is not excluded.
[2022-11-04 13:46] VITALS: BP 130/78; PULSE 60; RESP 18; TEMP 37.3; O2SAT 95
[2022-11-04 16:33] LABS: Basophils Absolute Auto 0.1 K/mm3 (0.0-0.1); Basophils Percent Auto 0.4 % (0.2-1.2); Eosinophils Absolute Auto 0.1 K/mm3 (0-0.3); Eosinophils Percent Auto 0.6 % (0-4.4); Hematocrit 36.2 % (42.0-52.0); Hemoglobin 11.4 g/dL (14.0-18.0); Immature Granulocyte Absolute 0.09 K/mm3 (0.00-0.031); Immature Granulocyte Percent A 0.6 % (0-0.5); Lymphocytes Absolute Auto 1.78 K/mm3 (0.9-3.2); Lymphocytes Percent Auto 12.5 % (18.3-44.2); Mean Corpuscular HGB Conc 31.5 g/dl (32-36); Mean Corpuscular Hemoglobin 30.1 pg (26-34); Mean Corpuscular Volume 95.5 fl (80-100); Mean Platelet Volume 10.7 fl (7.4-10.4); Monocytes Absolute Auto 1.3 K/mm3 (0.1-0.6); Monocytes Percent Auto 9.3 % (2.6-8.5); Neutrophils Absolute Auto 10.9 K/mm3 (1.3-6.7); Neutrophils Percent Auto 76.6 % (45.5-73.1); Platelet Count Result 192 k/mm3 (150-375); Red Blood Count 3.79 M/mm3 (4.6-6.20); Red Cell Distribution Width 14.2 % (11.5-14.5); White Blood Count 14.3 K/mm3 (4.5-10.0)
[2022-11-04] MEDS: HYDROcodone/acetaminophen (*CRX) 5-325 MG TABLET 1 TAB PO ×2 (16:41→22:43)
[2022-11-04 16:43] LABS: Anion Gap 5 mmol/L (8-16); Blood Urea Nitrogen 25 mg/dL (9-20); Calcium 9.2 mg/dL (8.4-10.2); Carbon Dioxide 32 mmol/L (22-30); Chloride 100 mmol/L (98-107); Estimated CRCL calculation 84 ml/min; Estimated Glomerular Filt Rate > 60; Glucose 160 mg/dL (65-110); Potassium 4.8 mmol/L (3.4-5.0); Sodium 137 mmol/L (137-145)
--- NOTE | 2022-11-04 17:08 | ED.EXTPRO ---
HPI - Extremity Problem General Chief complaint: Extremity Problem,Nontraumatic Stated complaint: left knee swollen Time Seen by Provider: 11/04/22 16:02 History of Present Illness HPI Narrative: Patient is a 67-year-old male who presents ER with left knee pain and swelling. Worsening over the last 2 days. He has history of prepatellar bursitis and this feels similar. He is reports low-grade temp of 99.9. He reports he has had frequent falls due to his Parkinson's. He does believe he struck his knee but cannot give a detailed story. He continues to be able to have flexion extension but has significant pain when he tries to bear weight. The area of the bursa has become red and hot. Related Data Home Medications Medication Instructions Recorded Confirmed carbidopa 25 mg-levodopa 100 mg 4 tablet PO Q3H 08/12/22 08/12/22 tablet carbidopa ER 50 mg-levodopa 200 mg 2 tablet PO HS 08/12/22 08/12/22 tablet,extended release duloxetine 60 mg capsule,delayed 60 mg PO Q12H 08/12/22 08/12/22 release melatonin 10 mg tablet 10 mg PO HS 08/12/22 08/12/22 metformin 500 mg tablet,extended 1,000 mg PO Q12H 08/12/22 08/12/22 release 24 hr mirtazapine 30 mg tablet 30 mg PO HS 08/12/22 08/12/22 naproxen sodium 220 mg capsule 220 mg PO Q12H PRN Pain 08/12/22 08/12/22 (Aleve) polyethylene glycol 3350 17 17 g PO DAILY 08/12/22 08/12/22 gram/dose oral powder (Miralax) pregabalin 300 mg capsule 300 mg PO Q12H 08/12/22 08/12/22 sitagliptin phosphate 100 mg 100 mg PO DAILY 08/12/22 08/12/22 tablet (Januvia) trazodone 100 mg tablet 100 mg PO HS 08/12/22 08/12/22 Allergies Allergy/AdvReac Type Severity Reaction Status Date / Time meperidine Allergy Severe Anaphylactic Verified 04/21/19 09:45 Shock Review of Systems Constitutional: Constitutional: Denies chills and Denies fatigue Comments: Low-grade temp ENT: Denies nasal congestion and Denies sore throat Cardiovascular: Cardiovascular: Denies chest pain, Denies rapid heart rate and Denies radiating jaw, neck or arm pain Musculoskeletal: Musculoskeletal: Denies myalgias, Reports arthralgias and Reports joint swelling Integumentary/Breasts: Skin/Breast: Denies pruritus, Reports erythema, Reports rash and Denies skin ulcer Neurologic: Denies syncope, Denies focal weakness and Denies numbness PMFSH Past Medical History Medical History Diabetes Hernia HTN (hypertension) Parkinsons disease Surgical History Surgical History History of carpal tunnel release Hx of cholecystectomy Hx of hernia repair Hx of right knee surgery Family History Family History Other Hypertension Social History Social History Social History: The patient lives with his who is a nurse at [employer]. 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 He has 2 children and has never smoked cigarettes. The patient is currently disabled due to his Parkinson's. Code status full code Smoking status: Never smoker Lack of Transportation: No Lack of Food: Never True Current Housing: I Have Housing Concerned About Future Housing: No Difficulty Paying Gas/Electric Bills: No Difficulty Paying for Meds: No Currently Unemployed: No Education: Decline to Answer Difficulty w/ Childcare or Family Care: No Spiritual care concerns: No Exam Narrative: GENERAL: Well-appearing, well-nourished, and in no acute distress. HEAD: Normocephalic, atraumatic. ENT: Mucous membranes moist. NECK: Supple. CHEST: Clear to auscultation. No respiratory distress. HEART: Regular rate and rhythm. Normal peripheral pulses. ABDOMEN: Soft, nontender, nondistended. EXTREMITIES: Normal range of motion. No edema. Bursitis left prepatellar region with overlying redn
[2022-11-04 18:20] VITALS: BP 109/57; PULSE 75; RESP 16; O2SAT 97
[2022-11-04] MEDS: ceFAZolin 1 GM/NS 50 ML 1 GM/50 ML BAG IVPB (18:20)
[2022-11-04 19:45] VITALS: BP 123/73; PULSE 82; RESP 18; O2SAT 99
[2022-11-04 19:48] VITALS: BP 123/73; PULSE 82; RESP 18; O2SAT 99
--- NOTE | 2022-11-04 19:50 | PM.IMHP ---
H&P: HPI History of Present Illness Date/Time: 11/04/22 19:50 Chief Complaint: Patient came to the ER for evaluation because of his left knee pain and swelling Narrative: He is a very pleasant gentleman who is complaining of left knee pain and swelling for the last few days. It started 4 days ago and is progressively getting worse. He has had frequent falls due to his Parkinson's and he may have scraped the knee during 1 of those falls, but he cannot give a detailed history. His left knee was felt to be red and hot on examination in the ER. Diagnosis was made of septic bursitis and Orthopedics was consulted who will evaluate the patient in the morning. Patient has been started on IV antibiotics in the ED. Review of Systems Review of Systems: he denies any chest pain, palpitations, fever rigor chills, nausea vomiting, dizziness or loss of consciousness. All systems reviewed & are unremarkable except as noted in HPI and below PMFSH Past Medical History Medical History Diabetes Hernia HTN (hypertension) Parkinsons disease Surgical History Surgical History History of carpal tunnel release Hx of cholecystectomy Hx of hernia repair Hx of right knee surgery Family History Family History Other Hypertension Social History Social History Social History: The patient lives with his who is a nurse at [employer]. 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 He has 2 children and has never smoked cigarettes. The patient is currently disabled due to his Parkinson's. Code status full code Smoking status: Never smoker Alcohol intake: never Substance use: never Substance use type: does not use Lack of Transportation: No Lack of Food: Never True Current Housing: I Have Housing Concerned About Future Housing: No Difficulty Paying Gas/Electric Bills: No Difficulty Paying for Meds: No Currently Unemployed: No Education: Decline to Answer Difficulty w/ Childcare or Family Care: No Spiritual care concerns: No Meds Home Medications and Allergies Home Medications Medication Instructions Recorded Confirmed Type carbidopa 25 mg-levodopa 100 mg 4 tablet PO Q3H 08/12/22 11/04/22 History tablet carbidopa ER 50 mg-levodopa 200 mg 2 tablet PO HS 08/12/22 11/04/22 History tablet,extended release duloxetine 60 mg capsule,delayed 60 mg PO Q12H 08/12/22 11/04/22 History release melatonin 10 mg tablet 10 mg PO HS 08/12/22 11/04/22 History metformin 500 mg tablet,extended 1,000 mg PO Q12H 08/12/22 11/04/22 History release 24 hr mirtazapine 30 mg tablet 30 mg PO HS 08/12/22 11/04/22 History naproxen sodium 220 mg capsule 220 mg PO Q12H PRN Pain 08/12/22 11/04/22 History (Aleve) polyethylene glycol 3350 17 17 g PO DAILY 08/12/22 11/04/22 History gram/dose oral powder (Miralax) pregabalin 300 mg capsule 300 mg PO Q12H 08/12/22 11/04/22 History sitagliptin phosphate 100 mg 100 mg PO DAILY 08/12/22 11/04/22 History tablet (Januvia) trazodone 100 mg tablet 100 mg PO HS 08/12/22 11/04/22 History aspirin 81 mg capsule 81 mg PO DAILY #30 caps 08/13/22 11/04/22 Rx fluvastatin 20 mg capsule 20 mg PO DAILY #30 caps 08/13/22 11/04/22 Rx Allergies Allergy/AdvReac Type Severity Reaction Status Date / Time meperidine Allergy Severe Anaphylactic Verified 04/21/19 09:45 Shock Vital Signs Vital Signs - 24 hr 11/04/22 13:46 11/04/22 18:20 11/04/22 19:48 Temperature 37.3 C Pulse Rate 60 75 82 Respiratory Rate 18 16 18 Blood Pressure 130/78 109/57 L 123/73 Pulse Oximetry 95 97 99 Oxygen Delivery Room Air Exam Narrative: PHYSICAL EXAMINATION: Vital signs: Please see the chart General physical exam: patient is lying in bed, having a pleasant conversation with w
[2022-11-04 20:22] VITALS: PULSE 82; RESP 18; O2SAT 99
--- NOTE | 2022-11-04 20:27 | ADMGEN ---
This patient, Barrington Hdez, was admitted to [address] [place] [address] Room 300-01. Patient/family oriented to hospital policies and general routines including ID bracelet, bed and alarms, visiting hours, pain management, procedures, bathroom and other care routines, personal items, smoking policy, room service/diet, and visiting hours. Information on how to activate the Rapid Response Team has been discussed. Patient/Family are encouraged to report perceived risks to care and to ask questions if they do not understand what they are told or what they should do.
[2022-11-04] MEDS: MORPHINE SULFATE (*CRX) 4 MG/ML INJ IV PUSH (20:39)
[2022-11-04 20:44] VITALS: BMI 25.2
[2022-11-04 22:00] VITALS: BP 129/64; PULSE 78; RESP 16; TEMP 36.7; O2SAT 100
[2022-11-04] MEDS: MELATONIN 5 MG TABLET 10 MG PO (22:44)
[2022-11-04] MEDS: PREGABALIN (*CRX) 75 MG CAPSULE 300 MG PO (22:44)
[2022-11-04] MEDS: DULoxetine HCL 60 MG CAPSULE.DR PO (22:44)
[2022-11-04] MEDS: CARBIDOPA/LEVODOPA 25/100 MG TABLET 4 TABLET PO (22:44)
[2022-11-04] MEDS: traZODone HCL 50 MG TABLET 100 MG PO (22:44)
[2022-11-04] MEDS: MIRTAZAPINE 30 MG TABLET PO (22:44)
[2022-11-04] MEDS: SODIUM CHLORIDE 0.9% IV 1,000 ML 100 ML IV CONT (22:45)
[2022-11-05] VITALS (7 sets, daily range): BP systolic 101–146; BP diastolic 54–82; PULSE 60–111; RESP 16–20; TEMP 36–36.6; O2SAT 90–100
[2022-11-05] MEDS: CARBIDOPA/LEVODOPA 25/100 MG TABLET 4 TABLET PO ×7 (02:30→20:47)
[2022-11-05] MEDS: ceFAZolin 1 GM/NS 50 ML 1 GM/50 ML BAG IVPB ×3 (02:31→17:24)
[2022-11-05] MEDS: MORPHINE SULFATE (*CRX) 4 MG/ML INJ IV PUSH ×3 (03:40→18:34)
[2022-11-05] MEDS: HYDROcodone/acetaminophen (*CRX) 5-325 MG TABLET 1 TAB PO ×2 (06:47→12:32)
[2022-11-05 07:15] LABS: Basophils Absolute Auto 0.1 K/mm3 (0.0-0.1); Basophils Percent Auto 0.4 % (0.2-1.2); Eosinophils Absolute Auto 0.2 K/mm3 (0-0.3); Eosinophils Percent Auto 1.8 % (0-4.4); Hematocrit 33.9 % (42.0-52.0); Hemoglobin 10.6 g/dL (14.0-18.0); Immature Granulocyte Absolute 0.04 K/mm3 (0.00-0.031); Immature Granulocyte Percent A 0.3 % (0-0.5); Lymphocytes Percent Auto 13.5 % (18.3-44.2); Mean Corpuscular HGB Conc 31.3 g/dl (32-36); Mean Corpuscular Hemoglobin 29.9 pg (26-34); Mean Corpuscular Volume 95.8 fl (80-100); Mean Platelet Volume 11.2 fl (7.4-10.4); Monocytes Absolute Auto 1.1 K/mm3 (0.1-0.6); Monocytes Percent Auto 9.2 % (2.6-8.5); Neutrophils Absolute Auto 8.9 K/mm3 (1.3-6.7); Neutrophils Percent Auto 74.8 % (45.5-73.1); Platelet Count Result 174 k/mm3 (150-375); Red Blood Count 3.54 M/mm3 (4.6-6.20); Red Cell Distribution Width 14.1 % (11.5-14.5); White Blood Count 11.9 K/mm3 (4.5-10.0)
[2022-11-05 07:26] LABS: Anion Gap 6 mmol/L (8-16); Blood Urea Nitrogen 23 mg/dL (9-20); Calcium 8.4 mg/dL (8.4-10.2); Carbon Dioxide 29 mmol/L (22-30); Chloride 103 mmol/L (98-107); Estimated CRCL calculation 95 ml/min; Estimated Glomerular Filt Rate > 60; Glucose 154 mg/dL (65-110); Magnesium 1.9 mg/dL (1.6-2.3); Phosphorus 3.3 mg/dL (2.5-4.5); Potassium 4.2 mmol/L (3.4-5.0); Sodium 138 mmol/L (137-145)
[2022-11-05] MEDS: PREGABALIN (*CRX) 75 MG CAPSULE 300 MG PO ×2 (08:05→20:47)
[2022-11-05] MEDS: polyethylene glycoL 3350 17 GM POWD.PACK PO (08:05)
[2022-11-05] MEDS: DULoxetine HCL 60 MG CAPSULE.DR PO ×2 (08:06→20:47)
--- NOTE | 2022-11-05 08:17 | PM.IMPN ---
Progress Note: A&P Assessment and Plan (1) Prepatellar bursitis, left knee: Code(s): M70.42 - Prepatellar bursitis, left knee Status: Acute Assessment and Plan: Left knee swelling, erythema, and pain Recent falls at home due to Parkinson's Knee XR with marked prepatellar soft tissue swelling Lactic and CRP ordered this morning. WBC is elevated. Vital signs stable. Orthopedics was consulted in the ED, rec's appreciated. (2) Parkinsons disease: Code(s): G20 - Parkinson's disease Status: Acute Assessment and Plan: Stable on home medications Carbidopa-levodopa (3) Diabetes: Qualifiers: Diabetes mellitus complication status: without complication Diabetes mellitus residential insulin use: without residential use Diabetes mellitus type: type 2 Qualified Code(s): E11.9 - Type 2 diabetes mellitus without complications Code(s): E11.9 - Type 2 diabetes mellitus without complications Status: Acute Assessment and Plan: Home regimen with Januvia and metformin HbA1c ordered for tomorrow morning Accu checks ac/Hs SSI with hypoglycemia protocol, Januvia continued (4) Falls frequently: Code(s): R29.6 - Repeated falls Status: Acute Assessment and Plan: Recent falls at home related to Parkinson's PT/OT consult, recommendations appreciated. Subjective Date/time seen: 11/05/22 08:17 Interval history: HPI obtained from chart, Chief Complaint: Patient came to the ER for evaluation because of his left knee pain and swelling Narrative: He is a very pleasant gentleman who is complaining of left knee pain and swelling for the last few days.? It started 4 days ago and is progressively getting worse.? He has had frequent falls due to his Parkinson's and he may have scraped the knee during 1 of those falls, but he cannot give a detailed history. ? His left knee was felt to be red and hot on examination in the ER.? Diagnosis was made of septic bursitis and Orthopedics was consulted who will evaluate the patient in the morning.? Patient has been started on IV antibiotics in the ED. 11/05: I have seen Mr. Hdez before at a previous admission for chest pain and left knee swelling. This admission he comes in after multiple falls and having right knee pain, erythema, and swelling for 1 week duration. He says he feels a lot at home due to his Parkinson's. 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 He has been consulted by both Orthopedics and myself about using a walker for ambulation to help prevent further falls. He is being admitted for IV antibiotics for concerns for possible infectious bursitis. Orthopedics does not see a need for surgery at this time and they do not feel strongly about septic diagnosis to which I agree. His lactic acid is 0.8, his blood pressures have been normal, and he is afebrile. They recommend IV antibiotics with eventual transition to PO and discharge with outpatient orthopedic consult. Patient experienced an episode of chest pain this morning for which he had previously been admitted for. A thorough cardiac workup was completed at that time and found to be more anxiety related. His EKG, troponin, and chest x-ray were negative this morning. He was placed on telemetry. Review of Systems Review of Systems: All systems reviewed & are unremarkable except as noted in HPI and below Exam Narrative: General: well appearing, well developed, well nourished, appears stated age. HEENT: normocephalic, atraumatic. Mucous membranes moist. EOMI, PERRLA, bilateral sclera anicteric, no conjunctival injection. Neck supple without JVD, lymphadenopathy, or bruit. Respiratory: clear to auscultation bilaterally. No rales/rhonic/wheezes. Cardiovascular: Regular rate and rhythm, normal S1-S2 upon auscultation. No murmurs, rubs, or clicks. PMI is nondisplaced, capillary re-fill less than 3 second. Abdomen: Soft, flat, no pulsatile masses,
--- NOTE | 2022-11-05 08:21 | ECG_ITS ---
Measurements Intervals [place] Rate: 83 P: 50 NE: 172 QRS: -17 QRSD: 103 T: -6 QT: 347 QTc: 410 Interpretive Statements SINUS RHYTHM VENTRICULAR PREMATURE COMPLEX INCOMPLETE RIGHT BUNDLE BRANCH BLOCK CONSIDER INFERIOR INFARCT, AGE INDETERMINATE BASELINE WANDER- I, II, III, AVR, AVL, AVF, V2-V6 ABNORMAL ECG COMPARED TO ECG 08/12/2022 11:07:56 NO SIGNIFICANT CHANGES Electronically Signed On 11-05-2022 8:50:03 CDT by Nicola Saucedo D.O.
[2022-11-05 08:57] LABS: Lactic Acid Reflex 0.8 mmol/L (0.7-2.0)
[2022-11-05 09:14] LABS: Creatine Kinase 118 U/L (55-170); NT Pro B Type Natriuretic Pept 327 pg/mL (19.9-100); Troponin I < 0.012 ng/mL (0.000-0.034)
[2022-11-05 09:22] LABS: CRP 17.2 mg/dL (<1.0)
--- NOTE | 2022-11-05 10:43 | PM.CNOR ---
Assessment and Plan Assessment and plan (1) Prepatellar bursitis, left knee: Code(s): M70.42 - Prepatellar bursitis, left knee Status: Acute Plan 67-year-old male with left prepatellar bursitis. I am not convinced that it is septic however he certainly has got an overlying cellulitis which is responding rapidly to the Ancef. Plan IV antibiotics for a few days followed by oral antibiotics, and then can follow up as an outpatient. I did discuss with him the role of prepatellar bursectomy. 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 67-year-old male with a history of a left prepatellar bursitis. He has frequent falls secondary to his parkinsonism. Will sporadically use a cane but nothing on a regular basis. He was diagnosed prepatellar bursitis couple of months ago. Recently he developed some redness overlying this. He was admitted and started on IV antibiotics. He says that the redness is improving this morning. Review of Systems Constitutional: Constitutional: Reports no additional constitutional complaints Neurologic: Reports as per [facility] Past Medical History Medical History Diabetes Hernia HTN (hypertension) Parkinsons disease Surgical History Surgical History History of carpal tunnel release Hx of cholecystectomy Hx of hernia repair Hx of right knee surgery Family History Family History Other Hypertension Social History Social History Social History: The patient lives with his who is a nurse at [employer]. 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 He has 2 children and has never smoked cigarettes. The patient is currently disabled due to his Parkinson's. Code status full code Smoking status: Never smoker Alcohol intake: never Substance use: never Substance use type: does not use Lack of Transportation: No Lack of Food: Never True Current Housing: I Have Housing Concerned About Future Housing: No Difficulty Paying Gas/Electric Bills: No Difficulty Paying for Meds: No Currently Unemployed: No Education: Decline to Answer Difficulty w/ Childcare or Family Care: No Spiritual care concerns: No Meds Home Medications and Allergies Home Medications Medication Instructions Recorded Confirmed Type carbidopa 25 mg-levodopa 100 mg 4 tablet PO Q3H 08/12/22 11/04/22 History tablet carbidopa ER 50 mg-levodopa 200 mg 2 tablet PO HS 08/12/22 11/04/22 History tablet,extended release duloxetine 60 mg capsule,delayed 60 mg PO Q12H 08/12/22 11/04/22 History release melatonin 10 mg tablet 10 mg PO HS 08/12/22 11/04/22 History metformin 500 mg tablet,extended 1,000 mg PO Q12H 08/12/22 11/04/22 History release 24 hr mirtazapine 30 mg tablet 30 mg PO HS 08/12/22 11/04/22 History naproxen sodium 220 mg capsule 220 mg PO Q12H PRN Pain 08/12/22 11/04/22 History (Aleve) polyethylene glycol 3350 17 17 g PO DAILY 08/12/22 11/04/22 History gram/dose oral powder (Miralax) pregabalin 300 mg capsule 300 mg PO Q12H 08/12/22 11/04/22 History sitagliptin phosphate 100 mg 100 mg PO DAILY 08/12/22 11/04/22 History tablet (Januvia) trazodone 100 mg tablet 100 mg PO HS 08/12/22 11/04/22 History aspirin 81 mg capsule 81 mg PO DAILY #30 caps 08/13/22 11/04/22 Rx fluvastatin 20 mg capsule 20 mg PO DAILY #30 caps 08/13/22 11/04/22 Rx Allergies Allergy/AdvReac Type Severity Reaction Status Date / Time meperidine Allergy Severe An
[2022-11-05 11:22] LABS: Cholesterol 201 mg/dL (0-200); HDL Direct 45 mg/dL; Triglycerides 93 mg/dL (<150)
[2022-11-05] MEDS: SODIUM CHLORIDE 0.9% IV 1,000 ML 100 ML IV CONT (11:22)
[2022-11-05 11:26] LABS: Glucose Point of Care 129 mg/dl (65-105)
[2022-11-05 11:33] LABS: LDL Cholesterol Direct 104 mg/dL
[2022-11-05] MEDS: diphenhydrAMINE HCl CAP 25 MG CAPSULE 50 MG PO (15:49)
[2022-11-05] MEDS: oxyCODONE HCL (*CRX) 5 MG TAB IR 10 MG PO ×2 (15:53→19:50)
[2022-11-05 16:31] LABS: Glucose Point of Care 133 mg/dl (65-105)
[2022-11-05] MEDS: ONDANSETRON INJ 4 MG/2 ML VIAL IV PUSH ×2 (18:12→20:48)
[2022-11-05] MEDS: ALPRAZolam (*CRX) 0.5 MG TABLET PO (20:47)
[2022-11-05] MEDS: MIRTAZAPINE 30 MG TABLET PO (20:47)
[2022-11-05] MEDS: MELATONIN 5 MG TABLET 10 MG PO (20:47)
[2022-11-05] MEDS: traZODone HCL 50 MG TABLET 100 MG PO (20:47)
[2022-11-05] MEDS: CARBIDOPA/LEVODOPA 25/100 MG CR TABLET 2 TABLET PO (20:47)
[2022-11-05 22:08] LABS: Glucose Point of Care 178 mg/dl (65-105)
[2022-11-06] VITALS (21 sets, daily range): BP systolic 90–112; BP diastolic 40–70; PULSE 74–104; RESP 16–32; TEMP 35.9–37.1; O2SAT 62–100
[2022-11-06] MEDS: ceFAZolin 1 GM/NS 50 ML 1 GM/50 ML BAG IVPB ×2 (02:42→11:29)
[2022-11-06] MEDS: SODIUM CHLORIDE 0.9% IV 1,000 ML 100 ML IV CONT (02:42)
[2022-11-06] MEDS: CARBIDOPA/LEVODOPA 25/100 MG TABLET 4 TABLET PO ×7 (02:42→20:45)
[2022-11-06] MEDS: ONDANSETRON INJ 4 MG/2 ML VIAL IV PUSH (02:54)
[2022-11-06] MEDS: MORPHINE SULFATE (*CRX) 4 MG/ML INJ IV PUSH (02:54)
[2022-11-06 06:01] LABS: Magnesium 1.8 mg/dL (1.6-2.3); Phosphorus 2.9 mg/dL (2.5-4.5)
[2022-11-06 06:33] LABS: Vancomycin Trough 11.7 ug/mL (10.0-20.0)
--- NOTE | 2022-11-06 07:29 | PM.IMPN ---
Progress Note: A&P Assessment and Plan (1) Prepatellar bursitis, left knee: Code(s): M70.42 - Prepatellar bursitis, left knee Status: Acute Assessment and Plan: Left knee swelling, erythema, and pain Recent falls at home due to Parkinson's Knee XR with marked prepatellar soft tissue swelling Lactic negative, CRP 17.2 WBC is elevated. Vital signs stable. Less likely septic arthritis. Currently receiving cefazolin and vancomycin Checking MRSA nares Orthopedics was consulted in the ED, rec's appreciated. Developed itching yesterday after receiving hydrocodone and antibiotics 2 hours prior. Unclear which agent is causing the reaction. His reports that in the ED he started having itching after the [place]. Stop [place] and continue with oxy for pain. One time dose of PO Benadryl now and monitor for further reactions after IV antibiotics. (2) Parkinsons disease: Code(s): G20 - Parkinson's disease Status: Acute Assessment and Plan: Stable on home medications Carbidopa-levodopa. Added on home amantadine t.i.d. for dyskinesia. Encouraged use of wheeled walker for ambulation however the patient is not interested in this. He still has intentions of house remodeling, working on the roof, etc. 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 prison use Diabetes mellitus type: type 2 Qualified Code(s): E11.9 - Type 2 diabetes mellitus without complications Code(s): E11.9 - Type 2 diabetes mellitus without complications Status: Acute Assessment and Plan: Home regimen with Januvia and metformin HbA1c 7% Accu checks ac/Hs SSI with hypoglycemia protocol, Januvia continued Lipid panel obtained; Total cholesterol 201, triglycerides 93, LDL 104, HDL 45 No longer needs statin therapy (4) Falls frequently: Code(s): R29.6 - Repeated falls Status: Acute Assessment and Plan: Recent falls at home related to Parkinson's PT/OT consult, recommendations appreciated. Plan Feeding:Diabetic diet Analgesia:Oxy with morphine for breakthrough, Tylenol Thromboembolic prophylaxis: SCDs Ulcer prophylaxis: N/A Glycemic control: Januvia and SSI Bowel regimen: miralax daily Lines: PIV Antibiotics: Cefazolin and vancomycin Plan for OR on Tuesday for washout Subjective Date/time seen: 11/06/22 07:29 Interval history: HPI obtained from chart, Chief Complaint: Patient came to the ER for evaluation because of his left knee pain and swelling Narrative: He is a very pleasant gentleman who is complaining of left knee pain and swelling for the last few days.? It started 4 days ago and is progressively getting worse.? He has had frequent falls due to his Parkinson's and he may have scraped the knee during 1 of those falls, but he cannot give a detailed history. ? His left knee was felt to be red and hot on examination in the ER.? Diagnosis was made of septic bursitis and Orthopedics was consulted who will evaluate the patient in the morning.? Patient has been started on IV antibiotics in the ED. 11/05: I have seen Mr. Hdez before at a previous admission for chest pain and left knee swelling. This admission he comes in after multiple falls and having right knee pain, erythema, and swelling for 1 week duration. He says he feels a lot at home due to his Parkinson's. 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 He has been consulted by both Orthopedics and myself about using a walker for ambulation to help prevent further falls. He is being admitted for IV antibiotics for concerns for possible infectious bursitis. Orthopedics does not see a need for surgery at this time and they do not feel strongly about septic diagnosis to which I agree. His lactic acid is 0.8, his blood pressures have been normal, and he is afebrile. They recommend IV antibiotics with eventual
[2022-11-06 08:05] LABS: Basophils Absolute Auto 0.1 K/mm3 (0.0-0.1); Basophils Percent Auto 0.3 % (0.2-1.2); Hematocrit 34.5 % (42.0-52.0); Immature Granulocyte Absolute 0.11 K/mm3 (0.00-0.031); Immature Granulocyte Percent A 0.7 % (0-0.5); Lymphocytes Absolute Auto 0.66 K/mm3 (0.9-3.2); Lymphocytes Percent Auto 4.5 % (18.3-44.2); Mean Corpuscular HGB Conc 31.9 g/dl (32-36); Mean Corpuscular Hemoglobin 30.3 pg (26-34); Mean Platelet Volume 11.6 fl (7.4-10.4); Monocytes Percent Auto 6.7 % (2.6-8.5); Neutrophils Absolute Auto 12.9 K/mm3 (1.3-6.7); Neutrophils Percent Auto 87.8 % (45.5-73.1); Platelet Count Result 194 k/mm3 (150-375); Red Blood Count 3.63 M/mm3 (4.6-6.20); Red Cell Distribution Width 14.2 % (11.5-14.5); White Blood Count 14.7 K/mm3 (4.5-10.0)
[2022-11-06 08:17] LABS: Glucose Point of Care 165 mg/dl (65-105)
[2022-11-06] MEDS: DULoxetine HCL 60 MG CAPSULE.DR PO ×2 (08:18→20:45)
[2022-11-06] MEDS: PREGABALIN (*CRX) 75 MG CAPSULE 300 MG PO ×2 (08:18→20:46)
[2022-11-06] MEDS: polyethylene glycoL 3350 17 GM POWD.PACK PO (08:18)
[2022-11-06 08:33] LABS: Anion Gap 5 mmol/L (8-16); Blood Urea Nitrogen 24 mg/dL (9-20); Calcium 8.3 mg/dL (8.4-10.2); Carbon Dioxide 27 mmol/L (22-30); Chloride 100 mmol/L (98-107); Estimated CRCL calculation 84 ml/min; Estimated Glomerular Filt Rate > 60; Glucose 191 mg/dL (65-110); Potassium 4.9 mmol/L (3.4-5.0); Sodium 132 mmol/L (137-145)
--- NOTE | 2022-11-06 08:51 | PM.PNORT ---
Progress Note: A&P Assessment and Plan (1) Prepatellar bursitis, left knee: Code(s): M70.42 - Prepatellar bursitis, left knee Status: Acute Plan 67-year-old male with a left prepatellar bursitis. Cellulitis seems to be improving dramatically. Given the duration that this has been present how tense this is I recommended excision of the bursa. Tentatively this is scheduled for November 08 in two days. I discussed this with hospitalist service. He is currently being evaluated for this episode of chest pain that was extensively worked up at his last admission. So far workup is unremarkable. It is felt to be related to perhaps anxiety and improves once he gets his Parkinson's meds per the patient. Risks and potential complications were discussed in detail and questions answered. Will keep NPO after midnight tomorrow night. Time Spent With Patient Time with patient: 15 - 25 minutes Subjective Subjective Date/Time Seen: 11/06/22 08:51 Interval history: 67-year-old male with a left prepatellar bursitis in surrounding cellulitis. Cellulitis has improved overnight. Still has the same amount of swelling and he states that it has been like this for several months. Review of Systems Review of Systems: All systems reviewed & are unremarkable except as noted in HPI and below Exam Const: General: cooperative, no acute distress and alert GI: Inspection: other Extrem: Other: Exam of the left knee reveals prominent swelling of the prepatellar bursa. Virtually no erythema now overlying the anterior portion of the knee inside the line of demarcation that was made yesterday. Does have irritability anteriorly as the knee is taken range of motion. No knee effusion. Neurovascular status unremarkable left lower extremity. Psych: Mental Status: mental status grossly normal Objective Data Vital Signs Vital Signs: Vital Signs - 24 hr 11/05/22 09:45 11/05/22 12:00 11/05/22 15:22 Temperature 97.7 F 97.7 F Pulse Rate 75 90 Respiratory Rate 16 16 Blood Pressure 112/64 101/58 L Pulse Oximetry 100 90 Oxygen Delivery Room Air 11/05/22 16:30 11/05/22 20:00 11/05/22 20:00 Temperature 96.8 F L 97.9 F Pulse Rate 90 111 H Respiratory Rate 16 20 Blood Pressure 131/65 109/54 L Pulse Oximetry 90 98 Oxygen Delivery Room Air 11/05/22 20:00 11/06/22 00:00 11/06/22 00:00 Temperature 96.7 F L Pulse Rate 68 74 92 Respiratory Rate 20 Blood Pressure 107/59 L Pulse Oximetry 94 Oxygen Delivery 11/06/22 04:00 11/06/22 04:00 Temperature 97.6 F Pulse Rate 74 104 H Respiratory Rate 16 Blood Pressure 104/64 Pulse Oximetry 97 Oxygen Delivery Intake/Output Intake/Output: Intake & Output 11/03/22 11/04/22 11/05/22 11/06/22 23:59 23:59 23:59 23:59 Intake Total 50 / 50 3092 / 3092 80 / 80 Output Total 700 / 700 Balance 50 / 50 2392 / 2392 80 / 80 Meds/Results Medications: Active Medications Generic Name Dose Route Start Last Admin Trade Name Freq PRN Reason Stop Dose Admin Acetaminophen 650 mg 11/04/22 22:14 Acetaminophen 325 Mg Tablet PO Q4H PRN Mild Pain (1-3) or Fever Al Hydrox/Mg Hydrox/Simethicone 30 ml 11/04/22 22:14 Mag Hydrox/Al Hydrox/Simeth 30 Ml Udc PO QID PRN Dyspepsia Carbidopa/Levodopa 4 tablet 11/04/22 23:00 11/06/22 08:17 Carbidopa/Levodopa 25/100 Mg Tablet PO 4 tablet Q3H CAROLE Administration Carbidopa/Levodopa 2 tablet 11/04/22 22:20 11/05/22 20:47 Carbidopa/Levodopa 25/100 Mg Cr Tablet PO 2 tablet HS CAROLE Administration Dextrose 12.5 gm 11/04/22 22:14 Dextrose 50% 25 Gm/50 Ml Syringe IV PUSH PRN PRN Hypoglycemia Protocol Duloxetine HCl 60 mg 11/04/22 22:15 11/06/22 08:18 Duloxetine Hcl 60 Mg Capsule.Dr PO 60 mg Q12HR CAROLE Administration Glucagon 1 mg 11/04/22 22:14 Glucagon For Inj 1 Mg Vial IM PRN PRN Hypoglycemia Protocol Glucos
[2022-11-06] MEDS: oxyCODONE HCL (*CRX) 5 MG TAB IR PO (11:32)
[2022-11-06 12:02] LABS: Glucose Point of Care 191 mg/dl (65-105)
[2022-11-06 12:58] LABS: Procalcitonin 0.1 ng/mL
--- NOTE | 2022-11-06 13:53 | PCOTNOTE ---
Attempted OT evaluation, patient with nursing with shortness of breath reading in the 60s. Will check back tomorrow after breathing is evaluated. Will follow.
[2022-11-06] MEDS: FUROSEMIDE INJ 40 MG/4 ML VIAL IV PUSH ×2 (14:27→15:24)
[2022-11-06 14:31] LABS: Alveolar/Arterial O2 Gradient 619.3 mmHg; Base Excess ABG -1.1 mEq/l (+/-2.0); Fractional Inspired Oxygen 100 %; HCO3 ABG 23.1 mEq/l (22.0-26.0); Modified Allen's Test Pass; Oxygen Content ABG 14.8 %vol (16.0-22.0); Oxygen Saturation ABG 90.2 % (95.0-100.0); Oxyhemoglobin 89.2 % THb (90.0-100.0); PCO2 ABG 36.8 mmHg (35.0-45.0); PO2 ABG 56.9 mmHg (80.0-100.0); PO2 FiO2 Ratio Arterial Blood 0.57 %; Site Drawn RIGHT RADIAL; Total Hemoglobin 11.8 g/dL (12.0-18.0); pH ABG 7.416 (7.350-7.450)
--- NOTE | 2022-11-06 14:34 | ECG_ITS ---
Measurements Intervals [place] Rate: 94 P: 44 NM: 169 QRS: -14 QRSD: 116 T: 19 QT: 354 QTc: 445 Interpretive Statements SINUS RHYTHM INCOMPLETE RIGHT BUNDLE BRANCH BLOCK INFERIOR INFARCT, AGE INDETERMINATE BORDERLINE ST ABNORMALITY- ANTEROLAT/HIGH LAT LEADS ABNORMAL ECG COMPARED TO ECG 11/05/2022 08:40:25 NO SIGNIFICANT CHANGES Electronically Signed On 11-06-2022 18:09:08 CDT by Nicola Saucedo D.O.
--- NOTE | 2022-11-06 14:41 | P.RRN_ITS ---
Critical Care Event Note Summary Code activated: No Narrative: Provider was called to bedside for acute desaturation. On room air his sats were reading 65%. He was placed on hi-flow nasal cannula at 6 lpm with improvement to 85%. Attempted 50% 15 L on venti mask with little improvement. Finally after placing on 100% non-rebreather the patient's saturation improved to 92-95%. He complains of inspiratory chest pain causing him to not take a deep breath. He is SOB at rest. His blood pressure remains stable but was initially tachycardic and tachypneic. The following were ordered, * Stat chest [id number] for pulmonary edema * IVP Lasix 40 mg x 2 * Troponin, BMP, BNP, lactic * Albuterol neb, Mg 2 grams * CTA r/o PE * BiPAP for PEEP. 01/19, Rate 18, 100% wean as tolerated. * Transfer to IMU This case had a high probability of a clinically significant, sudden, or life threatening deterioration of this patient's condition which required my full and direct attention, intervention and personal management. I discussed the case with my attending, Dr Painter. Critical care time: 75 - 104 mins
[2022-11-06] MEDS: AMANTADINE HCL 100 MG CAPSULE PO ×2 (15:12→20:47)
[2022-11-06] MEDS: ALBUTEROL SULFATE NEB 2.5 MG/3 ML INH INHALATION (15:41)
[2022-11-06] MEDS: MAGNESIUM SULF 2 GM/WATER 50ML 2 GM/50 ML BAG IVPB (15:42)
[2022-11-06] MEDS: AZITHROMYCIN 500 MG/NS 250 ML 500 MG/250 ML BAG 250 MG IVPB (15:42)
[2022-11-06 16:26] LABS: Anion Gap 6 mmol/L (8-16); Blood Urea Nitrogen 26 mg/dL (9-20); Calcium 8.4 mg/dL (8.4-10.2); Carbon Dioxide 29 mmol/L (22-30); Chloride 97 mmol/L (98-107); Estimated CRCL calculation 68 ml/min; Estimated Glomerular Filt Rate > 60; Glucose 194 mg/dL (65-110); Lactic Acid Reflex 1.7 mmol/L (0.7-2.0); Potassium 4.3 mmol/L (3.4-5.0); Sodium 132 mmol/L (137-145)
[2022-11-06 16:51] LABS: NT Pro B Type Natriuretic Pept 7120 pg/mL (19.9-100)
[2022-11-06 16:52] LABS: Glucose Point of Care 221 mg/dl (65-105)
[2022-11-06] MEDS: NITROGLYCERIN SL 0.4 MG TABLET SUBLINGUAL (17:08)
[2022-11-06] MEDS: ASPIRIN 325 MG ENTERIC TABLET PO (17:15)
[2022-11-06] MEDS: HEPARIN SOD/D5W 100 UNITS/ML 25,000 UNITS/250 ML BAG 10 UNITS IV CONT (19:26)
--- NOTE | 2022-11-06 19:31 | PC.NURSE ---
This patient, Barrington Hdez, was received from [ [phone]] on 11/06/22 at 1600. Patient/family oriented to unit policies and routines
--- NOTE | 2022-11-06 19:32 | PC.NURSE ---
Critical troponin called to Cierra DE JESUS at 1652. She requested cardiology be called. Dr. Austin was notified at 1655. She reviewed the ekg and called back notifying this nurse that it was a nonstemi at 1705 and to please change consult to Dr. Alcocer. Doctor Leodan was then notified. He requested to be called if chest pain came back after nitro.
[2022-11-06 19:34] LABS: Basophils Percent Auto 0.2 % (0.2-1.2); Eosinophils Percent Auto 0.1 % (0-4.4); Hematocrit 32.9 % (42.0-52.0); Hemoglobin 10.5 g/dL (14.0-18.0); Immature Granulocyte Absolute 0.07 K/mm3 (0.00-0.031); Immature Granulocyte Percent A 0.6 % (0-0.5); Lymphocytes Absolute Auto 0.77 K/mm3 (0.9-3.2); Lymphocytes Percent Auto 6.8 % (18.3-44.2); Mean Corpuscular HGB Conc 31.9 g/dl (32-36); Mean Corpuscular Hemoglobin 29.9 pg (26-34); Mean Corpuscular Volume 93.7 fl (80-100); Mean Platelet Volume 10.9 fl (7.4-10.4); Monocytes Absolute Auto 0.7 K/mm3 (0.1-0.6); Monocytes Percent Auto 5.8 % (2.6-8.5); Neutrophils Absolute Auto 9.8 K/mm3 (1.3-6.7); Neutrophils Percent Auto 86.5 % (45.5-73.1); Platelet Count Result 196 k/mm3 (150-375); Red Blood Count 3.51 M/mm3 (4.6-6.20); Red Cell Distribution Width 14.2 % (11.5-14.5); White Blood Count 11.3 K/mm3 (4.5-10.0)
[2022-11-06 19:48] LABS: INR 1.2; Prothrombin Time 15.5 Seconds (11.1-14.7)
[2022-11-06 19:49] LABS: Partial Thromboplastin Time 35.8 SECONDS (22.3-36.8)
[2022-11-06 20:03] LABS: Glucose Point of Care 224 mg/dl (65-105)
[2022-11-06] MEDS: CARBIDOPA/LEVODOPA 25/100 MG CR TABLET 2 TABLET PO (20:44)
[2022-11-06] MEDS: MELATONIN 5 MG TABLET 10 MG PO (20:45)
[2022-11-06] MEDS: MIRTAZAPINE 30 MG TABLET PO (20:46)
[2022-11-06] MEDS: NITROGLYCERIN OINTMENT 1 INCH DOSE TRANSDERM (20:46)
[2022-11-06] MEDS: traZODone HCL 50 MG TABLET 100 MG PO (20:47)
[2022-11-07] VITALS (22 sets, daily range): BP systolic 90–120; BP diastolic 50–66; PULSE 72–96; RESP 16–23; TEMP 36.4–36.9; O2SAT 89–100
[2022-11-07] MEDS: CARBIDOPA/LEVODOPA 25/100 MG TABLET 4 TABLET PO ×6 (00:56→23:07)
[2022-11-07 03:13] LABS: Partial Thromboplastin Time 45.7 SECONDS (22.3-36.8)
[2022-11-07] MEDS: HEPARIN SODIUM 5,000 UNITS/ML VIAL 4000 UNITS IV PUSH (03:46)
[2022-11-07] MEDS: AMANTADINE HCL 100 MG CAPSULE PO ×3 (06:51→21:27)
--- NOTE | 2022-11-07 08:10 | PM.IMPN ---
Progress Note: A&P Assessment and Plan (1) Prepatellar bursitis, left knee: Code(s): M70.42 - Prepatellar bursitis, left knee Status: Acute Assessment and Plan: Left knee swelling, erythema, and pain Recent falls at home due to Parkinson's Knee XR with marked prepatellar soft tissue swelling Lactic negative, CRP 17.2 WBC is elevated. Vital signs stable. Less likely septic arthritis. Currently receiving rocehpin and vancomycin Checking MRSA nares Orthopedics was consulted in the ED, rec's appreciated. Ortho was planning to take him to the OR on Tuesday, however, with this recent change in status I anticipate this being delayed. Developed itching yesterday after receiving hydrocodone and antibiotics 2 hours prior. Unclear which agent is causing the reaction. His reports that in the ED he started having itching after the [place]. Stop [place] and continue with oxy for pain. One time dose of PO Benadryl now and monitor for further reactions after IV antibiotics. (2) Parkinsons disease: Code(s): G20 - Parkinson's disease Status: Acute Assessment and Plan: Stable on home medications Carbidopa-levodopa. Added on home amantadine t.i.d. for dyskinesia. Encouraged use of wheeled walker for ambulation however the patient is not interested in this. He still has intentions of house remodeling, working on the roof, etc. (3) Diabetes: Qualifiers: Diabetes mellitus complication status: without complication Diabetes mellitus director long term care insulin use: without director long term care use Diabetes mellitus type: type 2 Qualified Code(s): E11.9 - Type 2 diabetes mellitus without complications Code(s): E11.9 - Type 2 diabetes mellitus without complications Status: Acute Assessment and Plan: Home regimen with Januvia and metformin HbA1c 7% Accu checks ac/Hs SSI with hypoglycemia protocol, Januvia continued Lipid panel obtained; Total cholesterol 201, triglycerides 93, LDL 104, HDL 45 (4) Falls frequently: Code(s): R29.6 - Repeated falls Status: Acute Assessment and Plan: Recent falls at home related to Parkinson's PT/OT consult, recommendations appreciated. (5) NSTEMI (non-ST elevated myocardial infarction): Code(s): I21.4 - Non-ST elevation (NSTEMI) myocardial infarction Status: Acute Assessment and Plan: 11/06 episode of acute desaturation and chest pain causing him to not be able to take a deep breath. Chest XR with flash pulmonary edema, IV lasix 40 mg x 2 with good response. CTA negative for PE, concerning for pulmonary edema and possibly PNA. Cefazolin switched to Rocephin, Vanco, and added azithromycin for empiric coverage for potential PNA, although I do not feel strong about this dx. Troponin elevated at 23.300-->27.900-->28.100 EKG with concerns for inferolateral ST changes. Interventional cardiology dx NSTEMI. Consulted Dr Alcocer with cards, rec's are greatly appreciated. Loaded with ASA 325 and then added back his daily ASA 81 mg Started on a heparin gtt. Chest pain resolved with nitro sublingual. Nitro paste applied. Awaiting cardiology's recommendation for DAPT, statin therapy, beta linn. Plan Feeding:Diabetic diet---NPO while on BiPAP Analgesia:Oxy with morphine for breakthrough, Tylenol Thromboembolic prophylaxis: SCDs, Heparin gtt Ulcer prophylaxis: Protonix BID Glycemic control: Januvia and SSI Bowel regimen: miralax daily Lines: PIV Antibiotics: Rocephin and vancomycin + Azithromycin Subjective Date/time seen: 11/07/22 08:10 Interval history: HPI obtained from chart, Chief Complaint: Patient came to the ER for evaluation because of his left knee pain and swelling Narrative: He is a very pleasant gentleman who is complaining of left knee pain and swelling for the last few days.? It started 4 days ago and is progressively getting worse.? He has had frequent falls due to his Parkinson's and he may hav
[2022-11-07 08:13] LABS: Glucose Point of Care 160 mg/dl (65-105)
--- NOTE | 2022-11-07 08:52 | PCOTNOTE ---
Attempted OT evaluation at 8:30. Spoke with nurse prior about patient's current status. Patient is not appropriate at this time due to unstable O2 levels without the BiPAP machine. Nurse requests to check back tomorrow. Will follow.
[2022-11-07] MEDS: FUROSEMIDE INJ 40 MG/4 ML VIAL IV PUSH ×2 (09:42→17:27)
[2022-11-07 09:48] LABS: Basophils Percent Auto 0.4 % (0.2-1.2); Eosinophils Absolute Auto 0.1 K/mm3 (0-0.3); Eosinophils Percent Auto 0.8 % (0-4.4); Hematocrit 34.1 % (42.0-52.0); Hemoglobin 10.9 g/dL (14.0-18.0); Immature Granulocyte Absolute 0.05 K/mm3 (0.00-0.031); Immature Granulocyte Percent A 0.4 % (0-0.5); Lymphocytes Absolute Auto 1.12 K/mm3 (0.9-3.2); Mean Corpuscular Volume 93.9 fl (80-100); Mean Platelet Volume 10.9 fl (7.4-10.4); Monocytes Absolute Auto 0.8 K/mm3 (0.1-0.6); Monocytes Percent Auto 7.1 % (2.6-8.5); Neutrophils Absolute Auto 9.2 K/mm3 (1.3-6.7); Neutrophils Percent Auto 81.3 % (45.5-73.1); Platelet Count Result 179 k/mm3 (150-375); Red Blood Count 3.63 M/mm3 (4.6-6.20); Red Cell Distribution Width 14.1 % (11.5-14.5); White Blood Count 11.3 K/mm3 (4.5-10.0)
[2022-11-07 10:00] LABS: Alanine Aminotransferase 11 U/L (6-50); Albumin Level 3.4 g/dL (3.5-5.1); Alkaline Phosphatase 87 U/L (38-126); Anion Gap 7 mmol/L (8-16); Aspartate Amino Transferase 111 U/L (17-59); Bilirubin,Total 0.8 mg/dL (0.2-1.3); Blood Urea Nitrogen 24 mg/dL (9-20); Calcium 8.1 mg/dL (8.4-10.2); Carbon Dioxide 28 mmol/L (22-30); Chloride 97 mmol/L (98-107); Estimated CRCL calculation 75 ml/min; Estimated Glomerular Filt Rate > 60; Glucose 187 mg/dL (65-110); Magnesium 2.3 mg/dL (1.6-2.3); Phosphorus 2.9 mg/dL (2.5-4.5); Potassium 3.9 mmol/L (3.4-5.0); Sodium 132 mmol/L (137-145)
--- NOTE | 2022-11-07 10:02 | PCPTNOTE ---
HOLD PT this date. Pt was moved to IMU yesterday afternoon due to rapid response called and decline in medical status. RN reports pt is not appropriate for PT today. Will follow.
--- NOTE | 2022-11-07 10:06 | ECG_ITS ---
Measurements Intervals [place] Rate: 93 P: 46 [place]: 167 QRS: -25 QRSD: 115 T: -13 QT: 331 QTc: 413 Interpretive Statements SINUS RHYTHM INCOMPLETE RIGHT BUNDLE BRANCH BLOCK INFERIOR INFARCT, AGE INDETERMINATE BORDERLINE ST-T WAVE ABNORMALITY- ANTEROLAT/HIGH LAT LEADS BASELINE WANDER- I, II, III ABNORMAL ECG COMPARED TO ECG 11/06/2022 16:07:31 NO SIGNIFICANT CHANGES Electronically Signed On 11-07-2022 13:24:02 CDT by Nicola Saucedo D.O.
[2022-11-07] MEDS: PREGABALIN (*CRX) 75 MG CAPSULE 300 MG PO ×2 (11:00→21:11)
[2022-11-07] MEDS: DULoxetine HCL 60 MG CAPSULE.DR PO ×2 (11:03→21:13)
[2022-11-07] MEDS: NITROGLYCERIN OINTMENT 1 INCH DOSE TRANSDERM ×2 (11:04→21:18)
[2022-11-07] MEDS: polyethylene glycoL 3350 17 GM POWD.PACK PO (11:05)
[2022-11-07] MEDS: ASPIRIN 81 MG ENTERIC TABLET PO (11:31)
[2022-11-07] MEDS: HEPARIN SODIUM 5,000 UNITS/ML VIAL 3500 UNITS IV PUSH ×2 (11:32→19:44)
[2022-11-07] MEDS: PANTOPRAZOLE SODIUM IV 40 MG VIAL IV PUSH ×2 (11:32→21:18)
[2022-11-07 11:57] LABS: Glucose Point of Care 158 mg/dl (65-105)
--- NOTE | 2022-11-07 16:12 | PM.CNCAR ---
Assessment and Plan Assessment and plan (1) NSTEMI (non-ST elevated myocardial infarction): Code(s): I21.4 - Non-ST elevation (NSTEMI) myocardial infarction Status: Acute Assessment and Plan: Troponin at time of acute respiratory failure already significantly elevated indicating subacute process which likely began the previous morning when he noted isolated chest pain. His initial with troponin at that time was negative and there were no acute ECG changes. Troponins have already peaked and down trended and patient remains stable without recurrent anginal symptoms. Continue heparin infusion, aspirin, statin therapy. I will hold off on addition of beta-linn therapy given relative hypotension last night although stable this morning. We discussed indication proceeding with invasive angiography including timing. We discussed should he develop refractory chest pain, hypotension or worsening respiratory status proceeding to the catheterization lab urgently will be advised. Otherwise provided he remains stable and asymptomatic in this regard or prefer to stabilize further respiratory and plan for invasive angiography tomorrow morning to give patient better chance not requiring intubation and sedation and able to lie flat on the cardiac catheterization table. We discussed pros and cons and associated risks. They verbalized understanding and agreed with plan of care and agreed to proceed with invasive angiography. Continue close clinical observation. Continue IV diuresis for volume management. Wean BiPAP as tolerated. We discussed potential findings & prospect of intervention and stent implantation and or recommendation for referral for bypass surgery depending on anatomy which would then require transfer to an outside facility capable of performing these procedures. Continue nitroglycerin paste. Continue aspirin 81 mg daily, atorvastatin 80 mg at bedtime Obtain 2D echocardiogram to assess LV function, valve pathology, pulmonary pressures wall motion abnormalities. NPO after midnight for coronary angiography. Patient remains at high risk for complications. Close clinical observation advised. Continue telemetry. (2) Acute respiratory failure: Qualifiers: Respiratory failure complication: hypoxia Qualified Code(s): J96.01 - Acute respiratory failure with hypoxia Code(s): J96.00 - Acute respiratory failure, unspecified whether with hypoxia or hypercapnia Status: Acute Assessment and Plan: Continue IV diuresis with Lasix 40 mg IV q.12. Monitor renal function, BP closely. Accurate input and output, daily weight. Continue BiPAP support. Wean as tolerated. Monitor electrolytes, replete potassium and magnesium. (3) HTN (hypertension): Qualifiers: Hypertension type: secondary to endocrine disorders Qualified Code(s): I15.2 - Hypertension secondary to endocrine disorders Code(s): I10 - Essential (primary) hypertension Status: Acute Assessment and Plan: Stable, no acute issues at this time. Monitor symptomatic hypotension. (4) Septic bursitis: Code(s): M71.10 - Other infective bursitis, unspecified site Status: Acute Assessment and Plan: Per Orthopedic surgery. Patient will likely need to proceed to catheterization suite prior to intervention for his left knee. We discussed potential complications check a with concern for underlying infection although he has been on IV antibiotics. We discussed bleeding risk with antiplatelet and anticoagulant therapy but given the circumstances cardiac status needs to take precedence but this must also be addressed as appropriate. Appreciate orthopedic surgeon involvement and recommendations. (5) Diabetes: Qualifiers: Diabetes mellitus type: type 2 Diabetes mellitus care home insulin use: without care home use Diabetes mellitus complication status: with circulatory complication Code(s): E11.9 - Typ
[2022-11-07 16:42] LABS: Glucose Point of Care 232 mg/dl (65-105)
[2022-11-07] MEDS: AZITHROMYCIN 500 MG/NS 250 ML 500 MG/250 ML BAG 250 MG IVPB (17:14)
[2022-11-07] MEDS: HEPARIN SOD/D5W 100 UNITS/ML 25,000 UNITS/250 ML BAG 15 UNITS IV CONT (17:23)
[2022-11-07] MEDS: ATORVASTATIN 40 MG TABLET 80 MG PO (17:26)
[2022-11-07] MEDS: INSULIN ASPART (*BKC) 100 UNITS/ML SUB-Q (17:27)
[2022-11-07] MEDS: oxyCODONE HCL (*CRX) 5 MG TAB IR PO (17:30)
[2022-11-07 18:18] LABS: Partial Thromboplastin Time 55.4 SECONDS (22.3-36.8)
[2022-11-07 18:37] LABS: Vancomycin Trough 15.3 ug/mL (10.0-20.0)
[2022-11-07] MEDS: ACETAMINOPHEN 325 MG TABLET 650 MG PO (21:09)
[2022-11-07] MEDS: CARBIDOPA/LEVODOPA 25/100 MG CR TABLET 2 TABLET PO (21:10)
[2022-11-07 21:13] LABS: Glucose Point of Care 212 mg/dl (65-105)
[2022-11-07] MEDS: MELATONIN 5 MG TABLET 10 MG PO (21:13)
[2022-11-07] MEDS: MIRTAZAPINE 30 MG TABLET PO (21:14)
[2022-11-07] MEDS: traZODone HCL 50 MG TABLET 100 MG PO (21:27)
[2022-11-08] VITALS (23 sets, daily range): BP systolic 106–143; BP diastolic 57–79; PULSE 79–94; RESP 17–25; TEMP 36.3–36.9; O2SAT 92–100
[2022-11-08 01:59] LABS: Partial Thromboplastin Time 115.3 SECONDS (22.3-36.8)
[2022-11-08] MEDS: CARBIDOPA/LEVODOPA 25/100 MG TABLET 4 TABLET PO ×6 (02:28→16:53)
[2022-11-08] MEDS: AMANTADINE HCL 100 MG CAPSULE PO ×2 (05:36→14:03)
[2022-11-08 08:05] LABS: Basophils Percent Auto 0.3 % (0.2-1.2); Eosinophils Absolute Auto 0.1 K/mm3 (0-0.3); Hematocrit 31.5 % (42.0-52.0); Hemoglobin 10.2 g/dL (14.0-18.0); Immature Granulocyte Absolute 0.05 K/mm3 (0.00-0.031); Immature Granulocyte Percent A 0.5 % (0-0.5); Lymphocytes Absolute Auto 0.72 K/mm3 (0.9-3.2); Lymphocytes Percent Auto 6.6 % (18.3-44.2); Mean Corpuscular HGB Conc 32.4 g/dl (32-36); Mean Corpuscular Hemoglobin 30.1 pg (26-34); Mean Corpuscular Volume 92.9 fl (80-100); Mean Platelet Volume 10.6 fl (7.4-10.4); Monocytes Absolute Auto 0.9 K/mm3 (0.1-0.6); Monocytes Percent Auto 8.1 % (2.6-8.5); Neutrophils Absolute Auto 9.1 K/mm3 (1.3-6.7); Neutrophils Percent Auto 83.5 % (45.5-73.1); Platelet Count Result 203 k/mm3 (150-375); Red Blood Count 3.39 M/mm3 (4.6-6.20); Red Cell Distribution Width 13.9 % (11.5-14.5); White Blood Count 10.9 K/mm3 (4.5-10.0)
[2022-11-08 08:15] LABS: Anion Gap 6 mmol/L (8-16); Blood Urea Nitrogen 19 mg/dL (9-20); Calcium 8.2 mg/dL (8.4-10.2); Carbon Dioxide 33 mmol/L (22-30); Chloride 94 mmol/L (98-107); Estimated CRCL calculation 68 ml/min; Estimated Glomerular Filt Rate > 60; Glucose 219 mg/dL (65-110); Potassium 3.9 mmol/L (3.4-5.0); Sodium 133 mmol/L (137-145)
[2022-11-08 08:19] LABS: Partial Thromboplastin Time 64.3 SECONDS (22.3-36.8)
[2022-11-08] MEDS: HEPARIN SOD/D5W 100 UNITS/ML 25,000 UNITS/250 ML BAG 17 UNITS IV CONT (08:56)
[2022-11-08] MEDS: ASPIRIN 81 MG ENTERIC TABLET PO (09:07)
[2022-11-08] MEDS: ATORVASTATIN 40 MG TABLET 80 MG PO (09:07)
--- NOTE | 2022-11-08 09:09 | WPDMODSED ---
Moderate Sedation Note-Pt Data Patient Data Diagnosis: Non ST-elevation [place] CHF Parkinson's disease Septic bursitis left knee Present Complaint: No complaints this morning Procedure to be performed/Plan: Coronary angiography Allergies Allergy/AdvReac Type Severity Reaction Status Date / Time meperidine Allergy Severe Anaphylactic Verified 11/04/22 23:34 Shock Home Medications Medication Instructions Recorded Confirmed Type carbidopa 25 mg-levodopa 100 mg 4 tablet PO Q3H 08/12/22 11/04/22 History tablet carbidopa ER 50 mg-levodopa 200 mg 2 tablet PO HS 08/12/22 11/04/22 History tablet,extended release duloxetine 60 mg capsule,delayed 60 mg PO Q12H 08/12/22 11/04/22 History release melatonin 10 mg tablet 10 mg PO HS 08/12/22 11/04/22 History metformin 500 mg tablet,extended 1,000 mg PO Q12H 08/12/22 11/04/22 History release 24 hr mirtazapine 30 mg tablet 30 mg PO HS 08/12/22 11/04/22 History naproxen sodium 220 mg capsule 220 mg PO Q12H PRN Pain 08/12/22 11/04/22 History (Aleve) polyethylene glycol 3350 17 17 g PO DAILY 08/12/22 11/04/22 History gram/dose oral powder (Miralax) pregabalin 300 mg capsule 300 mg PO Q12H 08/12/22 11/04/22 History sitagliptin phosphate 100 mg 100 mg PO DAILY 08/12/22 11/04/22 History tablet (Januvia) trazodone 100 mg tablet 100 mg PO HS 08/12/22 11/04/22 History aspirin 81 mg capsule 81 mg PO DAILY #30 caps 08/13/22 11/04/22 Rx fluvastatin 20 mg capsule 20 mg PO DAILY #30 caps 08/13/22 11/04/22 Rx Current Medications: Active Medications Acetaminophen (Acetaminophen 325 Mg Tablet) 650 mg PO Q4H PRN PRN Reason: Mild Pain (1-3) or Fever Last Admin: 11/07/22 21:09 Dose: 650 mg Al Hydrox/Mg Hydrox/Simethicone (Mag Hydrox/Al Hydrox/Simeth 30 Ml Udc) 30 ml PO QID PRN PRN Reason: Dyspepsia Albuterol (Albuterol Sulfate Neb 2.5 Mg/3 Ml Inh) 2.5 mg INHALATION Q4HRT PRN PRN Reason: Shortness Of Breath Last Admin: 11/06/22 15:41 Dose: 2.5 mg Amantadine HCl (Amantadine Hcl 100 Mg Capsule) 100 mg PO Q8HR [facility] Last Admin: 11/08/22 05:36 Dose: 100 mg Aspirin (Aspirin 81 Mg Enteric Tablet) 81 mg PO QAM [facility] Last Admin: 11/07/22 11:31 Dose: 81 mg Atorvastatin Calcium (Atorvastatin 40 Mg Tablet) 80 mg PO DAILY [facility] Last Admin: 11/07/22 17:26 Dose: 80 mg Carbidopa/Levodopa (Carbidopa/Levodopa 25/100 Mg Tablet) 4 tablet PO Q3H [facility] Last Admin: 11/08/22 05:35 Dose: 4 tablet Carbidopa/Levodopa (Carbidopa/Levodopa 25/100 Mg Cr Tablet) 2 tablet PO HS [facility] Last Admin: 11/07/22 21:10 Dose: 2 tablet Dextrose (Dextrose 50% 25 Gm/50 Ml Syringe) 12.5 gm IV PUSH PRN PRN; Protocol PRN Reason: Hypoglycemia Duloxetine HCl (Duloxetine Hcl 60 Mg Capsule.Dr) 60 mg PO Q12HR [facility] Last Admin: 11/07/22 21:13 Dose: 60 mg Furosemide (Furosemide Inj 40 Mg/4 Ml Vial) 40 mg IV PUSH BID [facility] Last Admin: 11/07/22 17:27 Dose: 40 mg Glucagon (Glucagon For Inj 1 Mg Vial) 1 mg IM PRN PRN; Protocol PRN Reason: Hypoglycemia Glucose (Glucose Oral Gel 15 Gm Of Glucse In 37.5 Gm Tube) 15 gm PO PRN PRN; Protocol PRN Reason: Hypoglycemia Heparin Sodium (Porcine) (Heparin Sodium 5,000 Units/Ml Vial) 3,500 units IV PUSH PRN PRN PRN Reason: aPTT 55 - 70 seconds Last Admin: 11/07/22 19:44 Dose: 3,500 units Heparin Sodium (Porcine) (Heparin Sodium 5,000 Units/Ml Vial) 4,000 units IV PUSH PRN PRN PRN Reason: aPTT less than 55 seconds Last Admin: 11/07/22 03:46 Dose: 4,000 units Dextrose (Dextrose 5% 1,000 Ml) 1,000 mls @ 100 mls/hr IVPB PRN PRN; Protocol PRN Reason: Hypoglycemia Vancomycin HCl (Vancomycin 2,000 Mg/D5w 500 Ml) 2,000 mg in 500 mls @ 250 mls/hr IVPB Q12H [facility] Last Admin: 11/08/22 06:13 Dose: 250 mls/hr Ceftriaxone Sodium (Rocephin 1 Gm/Ns 50 Ml) 1 gm in 50 mls @ 100 mls/hr IVPB Q24H [facility] Last Admin: 11/07/22 17:26 Dose: 100 mls/hr Azithromycin (Zithromax) 500 mg in 250 mls @ 250 mls/hr IVPB Q24H [facility] Last Admin: 11/07/22 17:14 Dose:
[2022-11-08 09:11] LABS: Glucose Point of Care 221 mg/dl (65-105)
[2022-11-08] MEDS: HEPARIN SODIUM 5,000 UNITS/ML VIAL 3500 UNITS IV PUSH (09:16)
--- NOTE | 2022-11-08 09:33 | PCOTNOTE ---
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 Per nursing, he is okay to work with today. Will follow.
--- NOTE | 2022-11-08 09:53 | PCPTNOTE ---
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 Will follow
[2022-11-08 10:11] LABS: Activated Clotting Time 131 SEC (74-137)
--- NOTE | 2022-11-08 10:13 | WPDCARDPROC ---
Cardiac Cath Procedure Note Date of procedure:: 11/08/22 Performing physician:: Tommy Aggarwal MD Indication:: non ST-elevation [place] Brief clinical history:: this is a 67-year-old man without previous knowledge of coronary disease. While he is hospitalized for noncardiac issues he has sustained a non ST elevation [place]. In this setting angiography has been recommended. He does have Parkinson's disease and as well as bursitis of his left knee Procedure Procedure performed:: coronary angiography left ventriculography Sedation/Medication given:: no sedation Access site:: right femoral artery Estimated blood loss:: 20 cc Procedure note:: patient was brought to the cardiac catheterization lab in the postabsorptive state where the right femoral triangle was prepped and draped in the usual fashion. Anesthesia was given with 1% lidocaine infiltrated locally. Because of high oxygen requirement I elected to provide no sedation. The femoral artery was punctured using the modified Seldinger technique and a 5 Italian vascular sheath was placed. After this I used a 5 Italian angled pigtail catheter to document left-sided hemodynamics and pullback pressures across the aortic valve. I then performed left and right coronary angiograms using standard 5 Italian Rita catheters. Following this the cineangiograms were reviewed. I then elected to perform a left ventriculogram used the same angled pigtail catheter for that. This was done in the 30 degree TURNER projection. The case was then terminated an ACT was checked which was 130. The sheath will be pulled in the holding area. Procedure was uncomplicated and well tolerated there was no evidence of groin hematoma upon leaving the cardiac catheterization lab. Findings:: Hemodynamics: The central aortic pressure is 115 over 58 left ventricle 115/0 end-diastolic pressure 15 there is no gradient on pullback across the aortic valve. Left ventricle: The left ventricle is modestly enlarged. The mid to apical anterior wall is akinetic the apex is akinetic. The global ejection fraction is 40-45% by visual estimation. heavy calcification can be seen in both left and right coronary arteries prior to any angiography being performed the left main coronary artery is medium in caliber and somewhat calcified. There is an eccentric ostial left main stenosis of 80-90%. The left anterior descending is a medium caliber artery which is also heavily calcified. There is 90-95% stenosis in the 1-1/3 of the LAD. There was JEREMI 3 flow in the vessel. The circumflex is a calcified artery of moderate caliber. The 1st marginal branch is quite large and has a ostial 99% stenosis. The 2nd marginal branch is smaller medium in caliber and has also mid stenosis of 90-95%. Collateral flow can be seen from the left coronary to the distal RCA RPDA and PL branches the right coronary artery is moderate to large caliber it was also heavily calcified. It is totally occluded in the 2nd portion. As described above there is collateral filling left to right to the PDA and PL branches. The acute marginal RV branch has a proximal 95% stenosis. Conclusion:: 1. Right coronary dominant circulation with severe three-vessel coronary artery disease. 2. Ostial 80-90% left main stenosis 3. 90-95% stenosis in the 1st 3rd of the LAD 4. high-grade lesions in large OM1 and small OM2 branch of the circumflex 5. 100% occlusion of the right coronary with [id number] collateral filling to the RPDA and PL 6. LV systolic dysfunction with severe mid mid to apical anterior hypokinesia and akinesia of the apex. Tommy Aggarwal MD FACC
[2022-11-08] MEDS: FUROSEMIDE INJ 40 MG/4 ML VIAL IV PUSH ×2 (12:29→16:54)
[2022-11-08] MEDS: DULoxetine HCL 60 MG CAPSULE.DR PO (12:29)
[2022-11-08] MEDS: PREGABALIN (*CRX) 75 MG CAPSULE 300 MG PO (12:29)
[2022-11-08] MEDS: PANTOPRAZOLE SODIUM IV 40 MG VIAL IV PUSH (12:29)
[2022-11-08] MEDS: NITROGLYCERIN OINTMENT 1 INCH DOSE TRANSDERM (12:30)
[2022-11-08 14:14] LABS: Glucose Point of Care 143 mg/dl (65-105)
--- NOTE | 2022-11-08 14:46 | PM.PNORT ---
Progress Note: A&P Assessment and Plan (1) Prepatellar bursitis, left knee: Code(s): M70.42 - Prepatellar bursitis, left knee Status: Acute Assessment and Plan: Given his cardiac issues over the weekend an upcoming interventions, the prepatellar bursitis can be addressed at another point. (2) Left leg cellulitis: Code(s): L03.116 - Cellulitis of left lower limb Status: Resolved Assessment and Plan: Resolved. Subjective Subjective Date/Time Seen: 11/08/22 14:46 Interval history: Erythema surrounding left prepatellar bursa has resolved. Patient had significant cardiac event over the weekend. Had cardiac catheterization and is on his way over to [place] now. Exam Const: General: cooperative Extrem: Other: Erythema resolved about the left knee. Tense swollen prepatellar bursa unchanged. Fluid is all subcutaneous and in the prepatellar region. No knee effusion. Objective Data Vital Signs Vital Signs: Vital Signs - 24 hr 11/07/22 15:45 11/07/22 16:00 11/07/22 19:37 Temperature 97.6 F 98 F Pulse Rate 94 95 Respiratory Rate 18 18 Blood Pressure 103/62 105/61 Pulse Oximetry 96 90 92 Oxygen Delivery Nasal Cannula Oxygen Flow Rate 15 Fraction of Inspired Oxygen 11/07/22 16:00 11/07/22 18:00 11/07/22 23:23 Temperature 98.2 F Pulse Rate 91 95 84 Respiratory Rate 20 Blood Pressure 101/57 L Pulse Oximetry 96 Oxygen Delivery Oxygen Flow Rate Fraction of Inspired Oxygen 11/07/22 20:00 11/07/22 20:00 11/07/22 22:00 Temperature Pulse Rate 94 96 Respiratory Rate Blood Pressure Pulse Oximetry 93 Oxygen Delivery High Flow Nasal Cannula Oxygen Flow Rate 15 Fraction of Inspired Oxygen 11/08/22 00:00 11/08/22 00:00 11/08/22 02:00 Temperature Pulse Rate 87 86 Respiratory Rate Blood Pressure Pulse Oximetry 96 Oxygen Delivery BiPAP Oxygen Flow Rate Fraction of Inspired Oxygen 55 11/07/22 23:00 11/08/22 02:23 11/08/22 03:41 Temperature Pulse Rate Respiratory Rate 20 21 H Blood Pressure Pulse Oximetry 95 96 98 Oxygen Delivery BiPAP BiPAP BiPAP Oxygen Flow Rate Fraction of Inspired Oxygen 55 11/08/22 04:00 11/08/22 04:44 11/08/22 06:00 Temperature 97.9 F Pulse Rate 87 79 81 Respiratory Rate 22 H Blood Pressure 115/66 Pulse Oximetry 96 Oxygen Delivery Oxygen Flow Rate Fraction of Inspired Oxygen 11/08/22 08:00 11/08/22 10:30 11/08/22 10:45 Temperature 97.7 F Pulse Rate 85 82 83 Respiratory Rate 22 H 24 H 17 Blood Pressure 114/66 112/77 124/79 Pulse Oximetry 96 92 100 Oxygen Delivery Oxygen Flow Rate Fraction of Inspired Oxygen 11/08/22 10:50 11/08/22 10:55 11/08/22 11:00 Temperature Pulse Rate 86 86 84 Respiratory Rate 17 24 H 25 H Blood Pressure 109/68 117/61 116/72 Pulse Oximetry 97 94 94 Oxygen Delivery Oxygen Flow Rate Fraction of Inspired Oxygen 11/08/22 11:30 11/08/22 11:05 11/08/22 11:10 Temperature Pulse Rate 84 86 85 Respiratory Rate 21 H 23 H 21 H Blood Pressure 106/71 143/68 H Pulse Oximetry 96 94 94 Oxygen Delivery Oxygen Flow Rate Fraction of Inspired Oxygen 11/08/22 11:15 11/08/22 11:45 11/08/22 12:00 Temperature Pulse Rate 87 84 85 Respiratory Rate 22 H 25 H 20 Blood Pressure 115/68 111/66 118/66 Pulse Oximetry 95 97 97 Oxygen Delivery High Flow Nasal Cannula High Flow Nasal Cannula Oxygen Flow Rate 12 12 Fraction of Inspired Oxygen 11/08/22 08:00 11/08/22 13:11 11/08/22 12:00 Temperature 97.4 F L Pulse Rate 87 Respiratory Rate 18 Blood Pressure 122/66 Pulse Oximetry 98 96 93 Oxygen Delivery High Flow Therapy with Na High Flow Therapy with Na Oxygen Flow Rate 14 12 Fraction of Inspired Oxygen 11/08/22 12:00 11/08/22 08:00 11/08/22 14:00 Temperature 97.8 F Pulse Rate 86 86 89 Respiratory Rate 20 18 18 Blood Pressure 11
[2022-11-08] MEDS: ACETAMINOPHEN 325 MG TABLET 650 MG PO (15:49)
--- NOTE | 2022-11-08 16:03 | PM.TDS ---
Transfer Discharge Sum: Prov Provider Date of admission: 11/05/22 11:21 Primary care physician: Tommy Baker, Admitting clinician: Damian Treadwell MD Consults: 11/04/22 17:21 Consult to Physician Routine Comment: Consulting Provider: Bert Herring yard caller/MD group to consult: Nima Reason for consultation: Septic bursitis Has provider been notified: Yes 11/06/22 Consult to Physician Routine Comment: Consulting Provider: Jaren Mora Reason for consultation: elevated trop and possible [place] Has provider been notified: Yes DS: Admitting Diagnosis Discharge Date 11/08/22 Admitting Diagnosis Infectious bursitis Transfer Discharge Sum: Med Medications Active and Home Medications: Home Medications carbidopa 25 mg-levodopa 100 mg tablet 4 tablet PO Q3H 08/12/22 [History Confirmed 11/04/22] carbidopa ER 50 mg-levodopa 200 mg tablet,extended release 2 tablet PO HS 08/12/22 [History Confirmed 11/04/22] duloxetine 60 mg capsule,delayed release 60 mg PO Q12H 08/12/22 [History Confirmed 11/04/22] melatonin 10 mg tablet 10 mg PO HS 08/12/22 [History Confirmed 11/04/22] metformin 500 mg tablet,extended release 24 hr 1,000 mg PO Q12H 08/12/22 [History Confirmed 11/04/22] mirtazapine 30 mg tablet 30 mg PO HS 08/12/22 [History Confirmed 11/04/22] naproxen sodium 220 mg capsule (Aleve) 220 mg PO Q12H PRN Pain 08/12/22 [History Confirmed 11/04/22] polyethylene glycol 3350 17 gram/dose oral powder (Miralax) 17 g PO DAILY 08/12/22 [History Confirmed 11/04/22] pregabalin 300 mg capsule 300 mg PO Q12H 08/12/22 [History Confirmed 11/04/22] sitagliptin phosphate 100 mg tablet (Januvia) 100 mg PO DAILY 08/12/22 [History Confirmed 11/04/22] trazodone 100 mg tablet 100 mg PO HS 08/12/22 [History Confirmed 11/04/22] aspirin 81 mg capsule 81 mg PO DAILY #30 caps 08/13/22 [Rx Confirmed 11/04/22] fluvastatin 20 mg capsule 20 mg PO DAILY #30 caps 08/13/22 [Rx Confirmed 11/04/22] Active Medications Acetaminophen (Acetaminophen 325 Mg Tablet) 650 mg PO Q4H PRN PRN Reason: Mild Pain (1-3) or Fever Last Admin: 11/08/22 15:49 Dose: 650 mg Al Hydrox/Mg Hydrox/Simethicone (Mag Hydrox/Al Hydrox/Simeth 30 Ml Udc) 30 ml PO QID PRN PRN Reason: Dyspepsia Albuterol (Albuterol Sulfate Neb 2.5 Mg/3 Ml Inh) 2.5 mg INHALATION Q4HRT PRN PRN Reason: Shortness Of Breath Last Admin: 11/06/22 15:41 Dose: 2.5 mg Amantadine HCl (Amantadine Hcl 100 Mg Capsule) 100 mg PO Q8HR [facility] Last Admin: 11/08/22 14:03 Dose: 100 mg Aspirin (Aspirin 81 Mg Enteric Tablet) 81 mg PO QAM [facility] Last Admin: 11/08/22 09:07 Dose: 81 mg Atorvastatin Calcium (Atorvastatin 40 Mg Tablet) 80 mg PO DAILY [facility] Last Admin: 11/08/22 09:07 Dose: 80 mg Carbidopa/Levodopa (Carbidopa/Levodopa 25/100 Mg Tablet) 4 tablet PO Q3H [facility] Last Admin: 11/08/22 14:02 Dose: 4 tablet Carbidopa/Levodopa (Carbidopa/Levodopa 25/100 Mg Cr Tablet) 2 tablet PO HS [facility] Last Admin: 11/07/22 21:10 Dose: 2 tablet Dextrose (Dextrose 50% 25 Gm/50 Ml Syringe) 12.5 gm IV PUSH PRN PRN; Protocol PRN Reason: Hypoglycemia Duloxetine HCl (Duloxetine Hcl 60 Mg Capsule.Dr) 60 mg PO Q12HR [facility] Last Admin: 11/08/22 12:29 Dose: 60 mg Furosemide (Furosemide Inj 40 Mg/4 Ml Vial) 40 mg IV PUSH BID [facility] Last Admin: 11/08/22 12:29 Dose: 40 mg Glucagon (Glucagon For Inj 1 Mg Vial) 1 mg IM PRN PRN; Protocol PRN Reason: Hypoglycemia Glucose (Glucose Oral Gel 15 Gm Of Glucse In 37.5 Gm Tube) 15 gm PO PRN PRN; Protocol PRN Reason: Hypoglycemia Heparin Sodium (Porcine) (Heparin Sodium 5,000 Units/Ml Vial) 3,500 units IV PUSH PRN PRN PRN Reason: aPTT 55 - 70 seconds Last Admin: 11/08/22 09:16 Dose: 3,500 units Heparin Sodium (Porcine) (Heparin Sodium 5,000 Units/Ml Vial) 4,000 units IV PUSH PRN PRN PRN Reason: aPTT less than 55 seconds Last Admin: 11/07/22 03:46 Dose: 4,000 units Dextrose (Dextrose 5% 1,000 Ml) 1,000 mls @ 100 mls/hr IVPB PRN PRN; Protoc
[2022-11-08 17:52] LABS: Glucose Point of Care 202 mg/dl (65-105)
--- NOTE | 2022-11-08 18:46 | ECG_ITS ---
Measurements Intervals Dick[place] Rate: 98 P: 30 AK: 160 QRS: -17 QRSD: 95 T: 9 QT: 339 QTc: 433 Interpretive Statements SINUS RHYTHM INCOMPLETE RIGHT BUNDLE BRANCH BLOCK INFERIOR INFARCT, AGE INDETERMINATE ST ABNORMALITY IN ANTEROLAT/HIGH LAT LEADS- CONSIDER ISCHEMIA ABNORMAL ECG COMPARED TO ECG 11/07/2022 11:51:58 NO SIGNIFICANT CHANGES Electronically Signed On 11-09-2022 14:21:27 CDT by Nicola Saucedo D.O.
--- NOTE | 2022-11-08 20:50 | PC.NURSE ---
Pt left with EMS. Vital signs stable, patient alert and oriented x4. Cardiac cath access site dressing clean dry and intact, site soft, pedal pulse palpable.
== END 2022-11-08 19:45 | disposition short-term general hospital (02) | DRG 557 ==
LOC: ANHED 17:40 → ANH3MEDSUR 19:33 → ANHIMU 11-06 15:50
PROVIDERS: Family Medicine; Internal Medicine Cardiovascular Disease; Specialist; Admitting Provider Internal Medicine; Emergency Provider Emergency Medicine; PCP Internal Medicine Endocrinology, Diabetes & Metabolism; Visit Provider Nurse Practitioner Acute Care
PROC: 4A023N7 Measurement of Cardiac Sampling and Pressure, Left Heart, Percutaneous Approach (ICD-10-PCS; CPT 93452; principal; 2022-11-08 09:30)
DX: M70.42 Prepatellar bursitis, left knee (principal); I21.4 Non-ST elevation (NSTEMI) myocardial infarction; L03.115 Cellulitis of right lower limb; R06.03 Acute respiratory distress; I25.10 Atherosclerotic heart disease of native coronary artery without angina pectoris; G20 Parkinson's disease; S46.001A Unspecified injury of muscle(s) and tendon(s) of the rotator cuff of right shoulder, initial encounter; X58.XXXA Exposure to other specified factors, initial encounter; E11.9 Type 2 diabetes mellitus without complications; I45.10 Unspecified right bundle-branch block; F41.9 Anxiety disorder, unspecified; I10 Essential (primary) hypertension; R29.6 Repeated falls; Z90.49 Acquired absence of other specified parts of digestive tract
CPT/HCPCS: 36415; 36600; 71045; 71275; 73564; 80048; 80053; 80061; 80202; 82550; 82805; 82948; 83036; 83605; 83735; 83880; 84100; 84145; 84484; 85025; 85610; 85730; 86140; 87040; 87081; 93005; 93458; 94002; 94640; 96361; 96365; 96366; 96375; 97162; 97530; 99285; A9270; C1887; C1894; C9113; G0378; J0456; J0690; J0696; J1644; J1815; J1940; J2250; J2270; J2405; J3010; J3370; J3475; J7030; J7040; Q9967